=== PATIENT | female | born 1930 | race Caucasian/White ===

== ENCOUNTER 2017-03-10 01:11 | Emergency (ER) | payer MEDICARE, OTHER ==
[~2017-03-10] VITALS: Ht 144.8 cm; Wt 90.7 kg
[2017-03-10] MEDS ORDERED: GELATIN SPONGE,ABSORBABLE 1 SPONGE SPONGE TP ONE ×2 (01:14→06:00)
--- NOTE | 2017-03-10 01:15 | NUR ---
SHAVONNE, EMT PLACED SUTURE SET UP AND LIDOCAINE AT THE BEDSIDE FOR DR. FELIX
--- NOTE | 2017-03-10 01:20 | NUR ---
PT BIB RA WITH A C/O LLE BLEEDING HEMATOMA S/P HITTING IT WHILE MOVING IN HER MOTORIZED WC. PT IS AA&O X4. PT IS ABSENTEE-SHAWNEE. DR. FELIX IS AT THE BEDSIDE. PT WAS ABLE TO MOVE FROM THE WHEELCHAIR TO THE GURNEY WITH ASSISTANCE. PT WAS PLACED ON THE MONITOR AND CONTINUOUS PULSE OX.
[2017-03-10 02:01] LABS: BASOPHILS % (AUTO) 0.4 % (0.0-2.0); EOSINOPHILS # (AUTO) 0.2 /CMM (0.0-0.7); EOSINOPHILS % (AUTO) 2.7 % (0.0-6.0); HEMATOCRIT 38 % (33-45); HEMOGLOBIN 12.4 g/dL (11.5-14.8); LYMPHOCYTES # (AUTO) 1.1 /CMM (0.8-4.8); LYMPHOCYTES % (AUTO) 14.8 % (20.0-44.0); MEAN CORPUSCULAR HEMOGLOBIN 31 PG (26.0-33.0); MEAN CORPUSCULAR HGB CONC 33 g/dl (31.0-36.0); MEAN CORPUSCULAR VOLUME 95 fL (82-100); MONOCYTES # (AUTO) 0.6 /CMM (0.1-1.30); MONOCYTES % (AUTO) 7.6 % (2.0-12.0); NEUTROPHILS # (AUTO) 5.6 /CMM (1.8-8.9); NEUTROPHILS % (AUTO) 74.5 % (43.0-81.0); PLATELET COUNT (AUTO) 158 /CMM (150-450); RDW COEFFICIENT OF VARIATION 14.8 (11.5-15.0); RED BLOOD CELL COUNT(AUTO) 3.97 MIL/uL (4.0-5.2); WHITE BLOOD COUNT (AUTO) 7.5 K/uL (4.3-11.0)
[2017-03-10 02:11] LABS: CALCIUM, SERUM 6.9 mg/dL (8.5-10.1); POTASSIUM 4.1 mmol/L (3.5-5.1)
[2017-03-10 02:27] LABS: INR 1.22 (0.87-1.13); PROTHROMBIN TIME 13.2 SECS (9.5-12.7)
--- NOTE | 2017-03-10 02:35 | NUR ---
PT APPEARS TO BE RESTING COMFORTABLY WITH NO S/S OF PAIN OR DISTRESS. PT'S VSS.
--- NOTE | 2017-03-10 03:16 | NUR ---
PT REC'D A WARM BLANKET AND OVERHEAD LIGHTS TURNED OFF TO ALLOW PT TO REST.
[2017-03-10 04:05] LABS: HEMOGLOBIN 11.6 g/dL (11.5-14.8)
--- NOTE | 2017-03-10 04:07 | NUR ---
PT APPEARS TO BE SLEEPING/RESTING COMFORTABLY WITH NO S/S OF PAIN OR DISTRESS.
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
[2017-03-10] MEDS ORDERED: LIDOCAINE 1% INJ 50 ML MDV IJ ONE (06:00)
[2017-03-10 08:08] VITALS: BP 106/58
--- NOTE | 2017-03-10 08:10 | NUR ---
Patient discharged to home in stable condition. Written and verbal after care instructions given. Patient verbalizes understanding of instruction.
== END 2017-03-10 08:16 | disposition home or self-care (01) ==
LOC: ER 01:18
DX: S81.812A Laceration without foreign body, left lower leg, initial encounter (principal); X58.XXXA Exposure to other specified factors, initial encounter; Y92.89 Other specified places as the place of occurrence of the external cause; Y93.89 Activity, other specified; Y99.8 Other external cause status
CPT/HCPCS: 36415; 80048-TC; 85025-TC; 85027-TC; 85610-TC; A4606; A6402; J3490; Z7610

== ENCOUNTER 2018-11-26 18:16 | Inpatient (IN) | payer MEDICARE, OTHER ==
[~2018-11-26] VITALS: Ht 167.6 cm; Wt 76.3 kg
[2018-11-26 18:53] LABS: BASOPHILS # (AUTO) 0.1 /CMM (0.0-0.2); BASOPHILS % (AUTO) 1.2 % (0.0-2.0); EOSINOPHILS % (AUTO) 2.4 % (0.0-6.0); HEMATOCRIT 41 % (33-45); HEMOGLOBIN 13.7 g/dL (11.5-14.8); LYMPHOCYTES # (AUTO) 1.4 /CMM (0.8-4.8); LYMPHOCYTES % (AUTO) 17.3 % (20.0-44.0); MEAN CORPUSCULAR HGB CONC 33 g/dl (31.0-36.0); MEAN CORPUSCULAR VOLUME 96 fL (82-100); MONOCYTES # (AUTO) 0.9 /CMM (0.1-1.30); MONOCYTES % (AUTO) 11.5 % (2.0-12.0); NEUTROPHILS # (AUTO) 5.4 /CMM (1.8-8.9); NEUTROPHILS % (AUTO) 67.6 % (43.0-81.0); PLATELET COUNT (AUTO) 181 /CMM (150-450); RED BLOOD CELL COUNT(AUTO) 4.29 MIL/uL (4.0-5.2)
[2018-11-26] MEDS ORDERED: IV NS 0.9% 500 ML BAG IV ONE (19:00)
--- NOTE | 2018-11-26 19:00 | NUR ---
patient presented to the ER c/o failure to thrive. Confused at times. on room air, breathing evenly and unlabored. on monitor, kept comfortable. will continue to monitor accordingly.
[2018-11-26 19:03] LABS: CALCIUM, SERUM 8.7 mg/dL (8.5-10.1); CARBON DIOXIDE 39 mmol/L (21-32); CHLORIDE 101 mmol/L (98-107); CREATININE 0.8 mg/dL (0.6-1.3); GLUCOSE 90 mg/dL (74-106); POTASSIUM 3.9 mmol/L (3.5-5.1); SODIUM SERUM 142 mmol/L (136-145); UREA NITROGEN, BLOOD 31 mg/dL (7-18)
[2018-11-26 19:10] LABS: ALANINE AMINOTRANSFERASE 13 U/L (12-78); ALBUMIN 3.1 g/dL (3.4-5.0); ALKALINE PHOSPHATASE 70 U/L (46-116); ASPARTATE AMINOTRANSFERASE 42 U/L (15-37); BILIRUBIN,DIRECT 0.2 mg/dL (0.0-0.2); BILIRUBIN,TOTAL 0.9 mg/dL (0.2-1.0); TOTAL PROTEIN, SERUM 8.2 g/dL (6.4-8.2)
--- NOTE | 2018-11-26 19:17 | NUR ---
urine collected and sent to lab.
--- NOTE | 2018-11-26 19:18 | NUR ---
endorsed to Gia RECINOS for joseph.
--- NOTE | 2018-11-26 19:21 | NUR ---
URINE COLLECTED AND SENT TO LAB
[2018-11-26 19:31] LABS: BILIRUBIN,URINE Negative (NEGATIVE); BLOOD, URINE Negative Ery/uL (NEGATIVE); COLOR,URINE Dark (YELLOW); KETONES,URINE Negative (NEGATIVE); LEUKOCYTE ESTERASE ,URINE Negative (NEGATIVE); NITRITE, URINE Negative (NEGATIVE); PROTEIN,URINE Negative (NEGATIVE); UGLUCOSE Negative (NEGATIVE); UROBILINOGEN,URINE 0.2 EU/dL (0.2)
[2018-11-26 19:32] LABS: APPEARANCE,URINE HAZY (CLEAR)
[2018-11-26 19:43] LABS: BACTERIA,URINE Few /HPF (None Seen); RBC,URINE 0-2 /HPF (0-2); SQUAMOUS EPITHELIAL CELL,UR Few /HPF (None Seen); WBC,URINE 0-2 /HPF (0-3)
--- NOTE | 2018-11-26 20:01 | NUR ---
MEDSURGE, 326-2, LILIANA, DEHYDRATION
[2018-11-26] MEDS ORDERED: ONDANSETRON HCL/PF 4 MG/2 ML VIAL IVP PRN (20:30)
[2018-11-26] MEDS ORDERED: HYDROCODONE/APAP 5/325MG 1 EACH TABLET PO PRN (20:30)
[2018-11-26] MEDS ORDERED: MAGNESIUM HYDROXIDE 30 ML UDC PO PRN (20:30)
[2018-11-26] MEDS ORDERED: Z GUARD REMEDY 2 OZ OINT TP PRN (20:30)
[2018-11-26] MEDS ORDERED: ZOLPIDEM TARTRATE 5 MG TABLET PO PRN (20:30)
[2018-11-26] MEDS ORDERED: MAG HYDROX/AL HYDROX/SIMETH 30 ML UDC PO PRN (20:30)
[2018-11-26] MEDS ORDERED: ACETAMINOPHEN 325 MG TABLET PO PRN (20:30)
--- NOTE | 2018-11-26 20:32 | NUR ---
REPORT GIVEN TO FARHAT RECINOS
[2018-11-26 20:48] VITALS: BP 147/49
[2018-11-26] MEDS ORDERED: HYDROMORPHONE INJ 0.5 MG/0.5 ML SYRINGE IV PRN (21:00)
--- NOTE | 2018-11-26 21:00 | NUR ---
MS CREDIT RATING CHECKER NOTES PATIENT WAS BROUGHT TO THE UNIT ON A GURNEY,PATIENT IS ALERT ORIENTED X3, ON ROOM AIR, IN NO APPARENT DISTRESS OR DISCOMFORT AT THIS TIME, RESPIRATIONS EVEN AND UNLABORED. PATIENT IS STABLE, VITAL SIGNS STABLE. PATIENT WAS MADE COMFORTABLE IN BED. INITIAL ASSESSMENT COMPLETED, SKIN ASSESSMENT PERFORMED, PHOTOS TAKEN PLACED IN CHART. BELONGING CHECKED AND DOCUMENTED. PATIENT MADE COMFORTABLE IN BED. ID BAND APPLIED, ORIENTED TO ROOM AND HOW TO CALL FOR ASSISTANCE. SAFETY MEASURES APPLIED, BED IN LOW LOCKED POSITION, SIDE RAILS UP X2, CALL LIGHT WITHIN EASY REACH. WILL CONTINUE TO MONITOR AND CARRY OUT ADMISSION ORDERS.
[2018-11-26] MEDS: ENOXAPARIN SODIUM 40 MG/0.4 ML DISP.SYRIN SQ SCH (22:03)
[2018-11-27] MEDS: IV NS 0.9% 1,000 ML IV PRN ×2 (00:58→15:25)
[2018-11-27 06:13] LABS: BASOPHILS % (AUTO) 0.7 % (0.0-2.0); EOSINOPHILS % (AUTO) 3.2 % (0.0-6.0); HEMATOCRIT 38 % (33-45); HEMOGLOBIN 12.8 g/dL (11.5-14.8); LYMPHOCYTES # (AUTO) 1.4 /CMM (0.8-4.8); LYMPHOCYTES % (AUTO) 22.3 % (20.0-44.0); MEAN CORPUSCULAR HGB CONC 33 g/dl (31.0-36.0); MEAN CORPUSCULAR VOLUME 96 fL (82-100); MONOCYTES # (AUTO) 0.7 /CMM (0.1-1.30); MONOCYTES % (AUTO) 11.8 % (2.0-12.0); NEUTROPHILS # (AUTO) 3.9 /CMM (1.8-8.9); PLATELET COUNT (AUTO) 141 /CMM (150-450); RED BLOOD CELL COUNT(AUTO) 4.02 MIL/uL (4.0-5.2); WHITE BLOOD COUNT (AUTO) 6.3 K/uL (4.3-11.0)
[2018-11-27 06:44] LABS: ALANINE AMINOTRANSFERASE 12 U/L (12-78); ALBUMIN 2.5 g/dL (3.4-5.0); ALKALINE PHOSPHATASE 61 U/L (46-116); ASPARTATE AMINOTRANSFERASE 23 U/L (15-37); BILIRUBIN,TOTAL 0.6 mg/dL (0.2-1.0); CARBON DIOXIDE 37 mmol/L (21-32); CHLORIDE 103 mmol/L (98-107); CREATININE 0.7 mg/dL (0.6-1.3); GLUCOSE 85 mg/dL (74-106); MAGNESIUM 1.9 mg/dL (1.8-2.4); PHOSPHORUS 3.2 mg/dL (2.5-4.9); POTASSIUM 3.5 mmol/L (3.5-5.1); SODIUM SERUM 143 mmol/L (136-145); TOTAL PROTEIN, SERUM 6.7 g/dL (6.4-8.2); UREA NITROGEN, BLOOD 24 mg/dL (7-18)
[2018-11-27 06:48] LABS: CHOLESTEROL 114 mg/dL (<200); HDL CHOLESTEROL 30 mg/dL (40-60); LDL 79 mg/dL (0-99); TRIGLYCERIDES 77 mg/dL (30-150)
--- NOTE | 2018-11-27 07:30 | NUR ---
received pt. this am alert and oriented x3. confused at times.
[2018-11-27 08:00] VITALS: BP 124/56
--- NOTE | 2018-11-27 08:23 | NUR ---
RN NOTES ALL NEEDS ATTENDED AND MET, ENDORSE FOR CONTINUITY OF CARE.
[2018-11-27] MEDS: PANTOPRAZOLE 40 MG VIAL IV SCH (09:16)
[2018-11-27] MEDS ORDERED: POTA10CA43 PO (11:20)
[2018-11-27] MEDS ORDERED: DABI150C PO (11:20)
[2018-11-27] MEDS ORDERED: BUME1TAB4 PO (11:26)
[2018-11-27] MEDS ORDERED: POTA20PA34 PO (11:26)
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
[2018-11-27 16:00] VITALS: BP 140/80
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
--- NOTE | 2018-11-27 17:50 | NUR ---
pox at this time 88-89%.o2 on at 3l nc.pt states she uses o2 every night at home.
--- NOTE | 2018-11-27 18:00 | NUR ---
informed by charge coordinator jina that pt. is to have a psych eval. to check for pt's competency level.
--- NOTE | 2018-11-27 18:30 | NUR ---
denies discomfort and no changes.
--- NOTE | 2018-11-27 19:30 | NUR ---
RN MS OPENING NOTES RECEIVED PATIENT IN BED AWAKE, ALERT AND ORIENTED X3, VERBALLY RESPONSIVE, ABLE TO MAKE NEEDS KNOWN. BREATHING EVEN AND UNLABORED. NO SOB NOTED. ON 3LPM OXYGEN VIA NC. NO COMPLAINTS OF PAIN OR DISCOMFORT. NO FACIAL GRIMACING. IV ON RIGHT UPPER ARM INFILTRATED. IV REMOVED AND ARM ELEVATED. WILL INSERT A NEW IV. SKIN DRY AND WARM TO TOUCH. AFEBRILE. ALL OTHER NEEDS ATTENDED TO. SAFETY MEASURES IN PLACE. CALL LIGHT WITHIN REACH. WILL CONTINUE TO MONITOR.
--- NOTE | 2018-11-27 20:00 | NUR ---
RN MS NOTES NEW IV STARTED FOR LEFT WRIST G#22. GOOD BLOOD RETURN. INTACT AND PATENT. WILL CONTINUE TO MONITOR.
[2018-11-27 20:11] VITALS: BP 118/64
[2018-11-27] MEDS: ENOXAPARIN SODIUM 40 MG/0.4 ML DISP.SYRIN SQ SCH ×2 (21:00→21:26)
--- NOTE | 2018-11-27 21:33 | NUR ---
JORJE MS NOTES PATIENT REFUSED LOVENOX TONIGHT. PATIENT STATED THAT SHE DOESN'T NEED IT AND THAT SHE "WAS NOT AWARE" THAT SHE RECEIVED THE MEDICATION LAST NIGHT. EXPLAINED THE PURPOSE OF THE MEDICATION WELL THE RISKS OF NOT TAKING. PATIENT STILL REFUSED. MEDICATION WAS TAKEN OUT OF THE PACKAGING, BUT WASTED INSTEAD. Addendum: 11/27/18 at 2136 by BABITA JANE RN WILL CONTINUE TO MONITOR.
[2018-11-28] MEDS: IV NS 0.9% 1,000 ML IV PRN (04:44)
--- NOTE | 2018-11-28 07:11 | NUR ---
RN MS CLOSING NOTES PATIENT RESTING IN BED. EASILY AROUSABLE. BREATHING EVEN AND UNLABORED. NO SOB NOTED. ON 3LPM OXYGEN VIA NC. NO COMPLAINTS OF PAIN OR DISCOMFORT. NO FACIAL GRIMACING. IV ON LEFT WRIST G#22 INTACT AND PATENT. SKIN DRY AND WARM TO TOUCH. AFEBRILE. ALL OTHER NEEDS ATTENDED TO. SAFETY MEASURES IN PLACE. CALL LIGHT WITHIN REACH. WILL ENDORSE TO ONCOMING NURSE FOR ARIAN.
[2018-11-28 08:00] VITALS: BP 135/55
[2018-11-28] MEDS: PANTOPRAZOLE 40 MG VIAL IV SCH (09:04)
--- NOTE | 2018-11-28 11:30 | NUR ---
IV INADVERTENTLY PULLED OUT.RESTARTED LT. HAND WITH #22 ANGIO.
--- NOTE | 2018-11-28 15:12 | NUR ---
WOUND CARE CONSULT: LIMITED ASSESSMENT TODAY DUE TO PT REFUSAL EXCEPT FOR LOWER LEGS. PT NOTED TO HAVE REDNESS WITH DRY SCAB TO ANTERIOR LOWER RT LEG WITH RAISED AREA TO RT LATERAL LOWER LEG. DEFER TO MD FOR RT LATERAL LOWER LEG REDNESS/RAISED AREA. REVIEWED ADMISSION PHOTOS WHICH SHOW VERY RED RASH TO BREASTFOLDS AND ABDOMINAL/GROIN FOLDS, PRESENT ON ADMISSION. RECOMMENDATIONS MADE FOR SKIN CARE AND PROTECTION. DISCUSSED WITH NURSING STAFF. RECOMMEND LOW AIRLOSS BED (ISOFLEX). WILL SEE PRN. MD IN AGREEMENT WITH PLAN OF CARE.
[2018-11-28 16:00] VITALS: BP 125/77
[2018-11-28] MEDS: MUPIROCIN OINT 2% 22 GM TUBE SCH ×2 (17:54→20:52)
[2018-11-28] MEDS: CLOTRIMAZOLE 1% 15 GM TUBE TP SCH (17:54)
--- NOTE | 2018-11-28 17:57 | NUR ---
MARIA. LOWER EXT. DOPPLER DONE.ISABELLE. WELL. INFORMED BY [facility] MRSA NARES. BACTROBAN ORDERED.IN CONTACT ISOLATION.
--- NOTE | 2018-11-28 19:30 | NUR ---
RECEIVED PATIENT IN BED WAKE. AO X 3, ABLE TO MAKE NEEDS KNOWN. NO ACUTE DISTRESS NOTED. DENIES ANY PAIN AT THIS TIME. IV SITE PATENT, INTACT; IVF INFUSING ORDERED. CONTACT ISOLATION MAINTAINED FOR MRSA NARES. SAFETY REMINDERS GIVEN. ON LOW BED WITH BILATERAL UPPER SIDE RAILS UP. CALL TERRY WITHIN EASY REACH. WILL CONTINUE TO MONITOR.
[2018-11-28 20:00] VITALS: BP_SYST 118; BP_SYST 126; BP_DIAS 43; BP_DIAS 51
[2018-11-28] MEDS: ENOXAPARIN SODIUM 40 MG/0.4 ML DISP.SYRIN SQ SCH (20:51)
[2018-11-29] MEDS: IV NS 0.9% 1,000 ML IV PRN (05:25)
--- NOTE | 2018-11-29 06:30 | NUR ---
PATIENT ASLEEP, EASILY AROUSABLE. RESPIRATIONS EVEN. NO SIGNS OF PAIN NOTED. DUE MEDS GIVEN WITH NO ASE NOTED. IVF INFUSING ORDERED. NEEDS ATTENDED. KEPT CLEAN, DRY, AND COMFORTABLE. SAFETY PRECAUTIONS AND COMFORT MEASURES IN PLACE. WILL GIVE REPORT TO DAY SHIFT FOR CONTINUITY OF CARE.
[2018-11-29 07:21] LABS: BASOPHILS % (AUTO) 0.8 % (0.0-2.0); EOSINOPHILS % (AUTO) 2.6 % (0.0-6.0); HEMATOCRIT 37 % (33-45); HEMOGLOBIN 11.8 g/dL (11.5-14.8); LYMPHOCYTES % (AUTO) 20.2 % (20.0-44.0); MEAN CORPUSCULAR HGB CONC 32 g/dl (31.0-36.0); MEAN CORPUSCULAR VOLUME 98 fL (82-100); MONOCYTES # (AUTO) 0.5 /CMM (0.1-1.30); NEUTROPHILS # (AUTO) 3.2 /CMM (1.8-8.9); NEUTROPHILS % (AUTO) 65.4 % (43.0-81.0); PLATELET COUNT (AUTO) 134 /CMM (150-450); RED BLOOD CELL COUNT(AUTO) 3.75 MIL/uL (4.0-5.2); WHITE BLOOD COUNT (AUTO) 4.8 K/uL (4.3-11.0)
--- NOTE | 2018-11-29 07:30 | NUR ---
MS/RN OPENING NOTE THE PATIENT ALERT AND ORIENTED X3. IN ROOM AIR AND DENIES SOB. RESPIRATION REGULAR AND UNLABORED. DENIES PAIN. THE PATIENT IN NO APPARENT DISTRESS. LEFT HAND G 22 PATENT AND NORMAL SALINE INFUSING AT 75ML/HR. NO S/S INFILTRATION NOTED. BED LOW AND LOCKED. SIDE RAILS UP X3. CALL LIGHT WITHIN REACH. WILL CONTINUE TO MONITOR.
[2018-11-29 07:47] LABS: CALCIUM, SERUM 7.7 mg/dL (8.5-10.1); CARBON DIOXIDE 34 mmol/L (21-32); CHLORIDE 110 mmol/L (98-107); CREATININE 0.7 mg/dL (0.6-1.3); GLUCOSE 78 mg/dL (74-106); MAGNESIUM 1.8 mg/dL (1.8-2.4); PHOSPHORUS 3.7 mg/dL (2.5-4.9); POTASSIUM 3.9 mmol/L (3.5-5.1); SODIUM SERUM 148 mmol/L (136-145); UREA NITROGEN, BLOOD 18 mg/dL (7-18)
[2018-11-29 08:00] VITALS: BP 117/72
[2018-11-29] MEDS: PANTOPRAZOLE 40 MG VIAL IV SCH (08:21)
[2018-11-29] MEDS: MUPIROCIN OINT 2% 22 GM TUBE SCH ×2 (08:33→21:17)
[2018-11-29] MEDS: CLOTRIMAZOLE 1% 15 GM TUBE TP SCH ×2 (08:33→16:13)
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
[2018-11-29 16:04] VITALS: BP 129/76
--- NOTE | 2018-11-29 18:30 | NUR ---
MS/RN NOTE THE PATIENT ALERT AND ORIENTED X3. IN ROOM AIR AND DENIES SOB. RESPIRATION REGULAR AND UNLABORED. DENIES PAIN. THE PATIENT IN NO APPARENT DISTRESS. LEFT HAND G 22 PATENT AND SALINE LOCKED. GOOD AND GENTLE SKIN CARE RENDERED. KEPT CLEAN, DRY AND COMFORTABLE. ALL NEEDS ATTENDED AND ANTICIPATED. BED LOW AND LOCKED. SIDE RAILS UP X3. CALL LIGHT WITHIN REACH. WILL ENDORSE TO SENIOR CONTROL SYSTEMS ENGINEER.
--- NOTE | 2018-11-29 19:30 | NUR ---
RECEIVED PATIENT IN BED WAKE. AO X 3, ABLE TO MAKE NEEDS KNOWN. NO ACUTE DISTRESS NOTED. DENIES ANY PAIN AT THIS TIME. IV SITE PATENT, INTACT; FLUSHED. CONTACT ISOLATION MAINTAINED FOR MRSA NARES. SAFETY REMINDERS GIVEN. ON LOW BED WITH BILATERAL UPPER SIDE RAILS UP. CALL TERRY WITHIN EASY REACH. WILL CONTINUE TO MONITOR.
[2018-11-29 20:00] VITALS: BP 112/47
[2018-11-29 20:51] VITALS: BP 112/47
[2018-11-29] MEDS: ENOXAPARIN SODIUM 40 MG/0.4 ML DISP.SYRIN SQ SCH (21:19)
--- NOTE | 2018-11-30 06:00 | NUR ---
PATIENT ASLEEP, EASILY AROUSABLE. RESPIRATIONS EVEN. NO SIGNS OF PAIN NOTED. DUE MEDS GIVEN WITH NO ASE NOTED. NEEDS ATTENDED. KEPT CLEAN, DRY, AND COMFORTABLE. SAFETY PRECAUTIONS AND COMFORT MEASURES IN PLACE. WILL GIVE REPORT TO DAY SHIFT FOR CONTINUITY OF CARE.
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
[2018-11-30 08:00] VITALS: BP 117/41
[2018-11-30] MEDS: PANTOPRAZOLE 40 MG VIAL IV SCH (09:16)
[2018-11-30] MEDS ORDERED: CLOT15CR35 TP (10:06)
[2018-11-30] MEDS ORDERED: MUPI22OI7 (10:14)
[2018-11-30] MEDS: CLOTRIMAZOLE 1% 15 GM TUBE TP SCH (10:18)
[2018-11-30] MEDS: MUPIROCIN OINT 2% 22 GM TUBE SCH (10:18)
--- NOTE | 2018-11-30 10:20 | NUR ---
m/s photographer's model: md visit seen and examined by dr. rodriguez with order to d'c to snf. order acknowledged. md spoke to farhat (dpoa) and updated plan of care and made of of d'c today. also i spoke to her over the phone and verbalized understanding.
--- NOTE | 2018-11-30 12:30 | NUR ---
m/s administrative support assoc: notes report given to arias (rn) from [facility] for continuity of care.
--- NOTE | 2018-11-30 14:30 | NUR ---
m/s ordnance engineer: notes discharge instructions given and belongings/valuables returned to pt and verbalized understanding. will continue to monitor. awaiting for ambulance.
--- NOTE | 2018-11-30 15:00 | NUR ---
m/s computer systems manager: notes still awaiting for ambulance to come to pick her up.
--- NOTE | 2018-11-30 16:00 | NUR ---
m/s 911 telecommunicator: notes ambulance crew here and report given. h/l removed with tip intact.
--- NOTE | 2018-11-30 16:10 | NUR ---
m/s implementation specialist: discharged discharged to snf in stable condition with all her valuables via ambulance.
== END 2018-11-30 16:10 | DRG 641 ==
LOC: ER 18:18 → MED 20:07
PROVIDERS: ADMIT Nurse Practitioner Acute Care; ATTEND Internal Medicine
DX: E86.0 Dehydration (principal); E44.1 Mild protein-calorie malnutrition; R62.7 Adult failure to thrive; L89.309 Pressure ulcer of unspecified buttock, unspecified stage; Z68.27 Body mass index [BMI] 27.0-27.9, adult; F39 Unspecified mood [affective] disorder; F09 Unspecified mental disorder due to known physiological condition; L30.4 Erythema intertrigo; M17.12 Unilateral primary osteoarthritis, left knee; M62.50 Muscle wasting and atrophy, not elsewhere classified, unspecified site; L98.8 Other specified disorders of the skin and subcutaneous tissue; I87.2 Venous insufficiency (chronic) (peripheral); R53.1 Weakness; R22.41 Localized swelling, mass and lump, right lower limb; G31.84 Mild cognitive impairment of uncertain or unknown etiology; I73.9 Peripheral vascular disease, unspecified; Z86.72 Personal history of thrombophlebitis
CPT/HCPCS: 36415; 71045-TC; 80048-TC; 80053-TC; 80061-TC; 80076-TC; 81000-TC; 83735-TC; 84100-TC; 85025-TC; 87081-TC; 93970-TC; A6403; C9113; G0378; J1650; J7030; J7040

== ENCOUNTER 2018-12-25 17:14 | Inpatient (IN) | payer MEDICARE ==
[~2018-12-25] VITALS: Ht 167.6 cm; Wt 80.8 kg
[~2018-12-25 17:14] MED LIST: CLOT15CR35 TP; DABI150C PO; MUPI22OI7
--- NOTE | 2018-12-25 17:29 | NUR ---
[id number], FROM HOME C/O BILATERAL LOWER EXTREMITIES PAIN AND EDEMA, TO ER BED 17, HOOKED TO MONITOR, AWAITING MD DURAN
--- NOTE | 2018-12-25 18:10 | NUR ---
DR HANCOCK AT BEDSIDE
[2018-12-25 18:20] LABS: BASOPHILS % (AUTO) 0.3 % (0.0-2.0); EOSINOPHILS % (AUTO) 0.6 % (0.0-6.0); HEMATOCRIT 43 % (33-45); HEMOGLOBIN 14.1 g/dL (11.5-14.8); LYMPHOCYTES # (AUTO) 1.3 /CMM (0.8-4.8); LYMPHOCYTES % (AUTO) 14.4 % (20.0-44.0); MEAN CORPUSCULAR HGB CONC 32 g/dl (31.0-36.0); MEAN CORPUSCULAR VOLUME 96 fL (82-100); MONOCYTES # (AUTO) 0.7 /CMM (0.1-1.30); MONOCYTES % (AUTO) 7.2 % (2.0-12.0); NEUTROPHILS # (AUTO) 7.2 /CMM (1.8-8.9); NEUTROPHILS % (AUTO) 77.5 % (43.0-81.0); PLATELET COUNT (AUTO) 125 /CMM (150-450); RED BLOOD CELL COUNT(AUTO) 4.53 MIL/uL (4.0-5.2); WHITE BLOOD COUNT (AUTO) 9.3 K/uL (4.3-11.0)
[2018-12-25 18:29] LABS: CALCIUM, SERUM 8.4 mg/dL (8.5-10.1); CARBON DIOXIDE 33 mmol/L (21-32); CHLORIDE 101 mmol/L (98-107); CREATININE 0.8 mg/dL (0.6-1.3); GLUCOSE 85 mg/dL (74-106); SODIUM SERUM 139 mmol/L (136-145); UREA NITROGEN, BLOOD 19 mg/dL (7-18)
[2018-12-25] MEDS ORDERED: VANCOMYCIN 1 GM in IV D5W 250 ML IV ONE (18:30)
[2018-12-25] MEDS ORDERED: METOCLOPRAMIDE HCL 10 MG/2 ML VIAL IV ONE (18:30)
[2018-12-25] MEDS ORDERED: PIPERACILLIN /TAZOBACTAM 3.375 G in IV D5W 50 ML IV ONE (18:30)
[2018-12-25 18:31] LABS: MAGNESIUM 1.6 mg/dL (1.8-2.4)
[2018-12-25 18:44] LABS: CHOLESTEROL 141 mg/dL (<200); HDL CHOLESTEROL 40 mg/dL (40-60); LDL 91 mg/dL (0-99); TRIGLYCERIDES 88 mg/dL (30-150)
[2018-12-25] MEDS ORDERED: Magnesium 1GM/D5W 100ML PREMIX 100 ML IV ONE ×2 (19:02→22:38)
--- NOTE | 2018-12-25 19:10 | NUR ---
US TECH AT BEDSIDE
[2018-12-25 19:11] LABS: APPEARANCE,URINE Cloudy (CLEAR); BILIRUBIN,URINE Negative (NEGATIVE); BLOOD, URINE Moderate Ery/uL (NEGATIVE); COLOR,URINE Yellow (YELLOW); KETONES,URINE Negative (NEGATIVE); LEUKOCYTE ESTERASE ,URINE Small (NEGATIVE); NITRITE, URINE Positive (NEGATIVE); PROTEIN,URINE Trace mg/dl (NEGATIVE); UGLUCOSE Negative (NEGATIVE)
[2018-12-25] MEDS ORDERED: VANCOMYCIN 1 GM VIAL ONE (19:27)
--- NOTE | 2018-12-25 19:40 | NUR ---
DIAPER CHANGED. PT NOTED W L AND R GROIN MASD. KEPT PT CLEAN, SAFE AND COMFORTABLE. WILL CONTINUE TO MONITOR
[2018-12-25 19:43] LABS: BACTERIA,URINE Many /HPF (None Seen); SQUAMOUS EPITHELIAL CELL,UR Few /HPF (None Seen)
--- NOTE | 2018-12-25 20:06 | NUR ---
PROVIDED WITH EGG SANDWICH AND ORANGE JUICE
[2018-12-25] MEDS: Magnesium 1GM/D5W 100ML PREMIX 100 ML IV SCH ×2 (20:15→23:33)
--- NOTE | 2018-12-25 21:10 | NUR ---
CALLED [facility] SPOKE TO THE NURSING PUBLIC DEFENDER HALI. HE STATES THAT THEY DONT HAVE ANY BEDS AVAILABLE AT THE MOMENT.
--- NOTE | 2018-12-25 21:11 | NUR ---
REPORT GIVEN TO KEO RECINOS OF TELE UNIT FOR ARIAN
[2018-12-25] MEDS ORDERED: IV NS 0.9% 1,000 ML IV PRN (21:24)
[2018-12-25] MEDS ORDERED: Z GUARD REMEDY 2 OZ OINT TP PRN (21:30)
[2018-12-25] MEDS ORDERED: ACETAMINOPHEN 325 MG TABLET PO PRN (21:30)
[2018-12-25] MEDS ORDERED: ONDANSETRON HCL/PF 4 MG/2 ML VIAL IVP PRN (21:30)
[2018-12-25] MEDS ORDERED: MAG HYDROX/AL HYDROX/SIMETH 30 ML UDC PO PRN (21:30)
[2018-12-25] MEDS ORDERED: MAGNESIUM HYDROXIDE 30 ML UDC PO PRN (21:30)
[2018-12-25] MEDS ORDERED: HYDROCODONE/APAP 5/325MG 1 EACH TABLET PO PRN (21:30)
--- NOTE | 2018-12-25 21:45 | NUR ---
MS BASKETBALL COMMENTATOR INITIAL NOTES ADMIT PT FROM ER VIA GURADELA ACCOMPANIED BY ER NURSE AND TECH. DX OF LOWER LEGS CELLULITIS. PT IS ALERT ORIENTED X3. HEPLOCK ON HER LEFT AC PATENT AND INTACT . AWARE WHERE SHE AT AND HOW TO USED THE CALL LIGHT SYSTEM. PT DENIES ANY PAIN OR ANY DISCOMFORT AT THIS TIME. NO SIGNS OF ANY ACUTE DISTRESS NOTED. NOTED SKIN WARM AND DRY TO TOUCH , SKIN RASH AND REDNESS. EDEMA BOTH LOWER LEGS , OFFLOAD WITH PILLOWS. ASSESSMENT DONE AND RECORDED AND ENCOURAGE PT TO USED THE CALL LIGHT SYSTEM IF SHE NEEDS NURSE OR NEEDS SOME HELP. KEPT HER WARM AND COMFORTABLE AT ALL TIMES. ON SEMI FOWLERS POSITION WITH SIDE RAILSX2 UP AND BED IN LOW AND LOCK IN POSITION PLACE CALL LIGHT AT REACH. BED ALARM SET FOR SAFETY.
[2018-12-25 22:00] VITALS: BP 100/45
--- NOTE | 2018-12-25 22:30 | NUR ---
CLARIFIED W DR HANCOCK, ORDERED 1G OF MG SULFATE TO RUN FOR AN HOUR. HOOKED 2ND BAG OF MAGNESIUM IVPB. ENDORSED TO KEO RECINOS.
--- NOTE | 2018-12-25 23:40 | NUR ---
MS BETI NOTES MAGNESIUM IVP BAG DOSE GIVEN BY ANOTHER NURSE ORDERED BY DR HANCOCK PER ER NURSE . 2 DOSE OF MG COMPLETE ORDERED.
--- NOTE | 2018-12-25 23:45 | NUR ---
RN MS NOTES 1 GM MAGNESIUM GIVEN ORDERED EXPLANATION GIVEN TO PATIENT REGARDING MG REPLACEMENT.
[2018-12-26 00:27] VITALS: BP 100/45
[2018-12-26 06:36] LABS: BASOPHILS % (AUTO) 0.3 % (0.0-2.0); EOSINOPHILS % (AUTO) 2.9 % (0.0-6.0); HEMATOCRIT 35 % (33-45); HEMOGLOBIN 11.9 g/dL (11.5-14.8); LYMPHOCYTES # (AUTO) 1.5 /CMM (0.8-4.8); LYMPHOCYTES % (AUTO) 23.1 % (20.0-44.0); MEAN CORPUSCULAR HGB CONC 34 g/dl (31.0-36.0); MEAN CORPUSCULAR VOLUME 94 fL (82-100); MONOCYTES # (AUTO) 0.5 /CMM (0.1-1.30); MONOCYTES % (AUTO) 8.4 % (2.0-12.0); NEUTROPHILS # (AUTO) 4.1 /CMM (1.8-8.9); NEUTROPHILS % (AUTO) 65.3 % (43.0-81.0); PLATELET COUNT (AUTO) 98 /CMM (150-450); RED BLOOD CELL COUNT(AUTO) 3.77 MIL/uL (4.0-5.2); WHITE BLOOD COUNT (AUTO) 6.3 K/uL (4.3-11.0)
[2018-12-26 06:52] LABS: CHOLESTEROL 101 mg/dL (<200); HDL CHOLESTEROL 29 mg/dL (40-60); LDL 67 mg/dL (0-99); THYROID STIMULATING HORMONE 1.535 uIU/mL (0.358-3.74); TRIGLYCERIDES 57 mg/dL (30-150)
[2018-12-26 07:01] LABS: CALCIUM, SERUM 7.8 mg/dL (8.5-10.1); CARBON DIOXIDE 32 mmol/L (21-32); CHLORIDE 106 mmol/L (98-107); CREATININE 0.6 mg/dL (0.6-1.3); GLUCOSE 78 mg/dL (74-106); MAGNESIUM 2.2 mg/dL (1.8-2.4); PHOSPHORUS 3.1 mg/dL (2.5-4.9); POTASSIUM 3.4 mmol/L (3.5-5.1); SODIUM SERUM 143 mmol/L (136-145); UREA NITROGEN, BLOOD 13 mg/dL (7-18)
--- NOTE | 2018-12-26 07:27 | NUR ---
ms supervisor unloading closing notes pt awake and alert watching TV and at the same time answering her puzzle. stable tiffanie the night and slept well after we rendered sponges bath and skin care.. IVF NS at 75ml/hr still infusing on her left AC patent and intact. No signs of any acute distress or any discomfort. kept her warm and comfortable at all times. place call light at reach. bed aalarm set for safety. endorse to am nurse for continuity of care.
--- NOTE | 2018-12-26 07:41 | NUR ---
MS RN NOTES PATIENT RECEIVED RESTING INSIDE ROOM. AWAKE, ALERT AND ORIENTED, VERBALLY RESPONSIVE AND RESPONDS TO VERBAL AND TACTILE STIMULI. BREATHING EVEN AND UNLABORED. NO ACUTE DISTRESS AT THIS TIME. PATIENT DENIES ANY PAIN OR DISCOMFORT. IVF INFUSING WELL. WILL CONTINUE TO MONITOR. BED LOCKED AND IN LOW POSITION. BILATERAL UPPER SIDE RAILS UP AND LOCKED. CALL LIGHT WITHIN EASY REACH
[2018-12-26 08:00] VITALS: BP 118/45
[2018-12-26] MEDS ORDERED: FEE PK DOSING 1 MIN EA MC ONE (08:10)
[2018-12-26 08:42] LABS: EOSINOPHILS % (MANUAL) 1 % (0-4); LYMPHOCYTES % (MANUAL) 23 % (16-48); MONOCYTES % (MANUAL) 9 % (0-11.0); NEUTROPHILS % (MANUAL) 67 (42-76)
[2018-12-26] MEDS: MUPIROCIN OINT 2% 22 GM TUBE SCH ×2 (09:00→20:51)
[2018-12-26] MEDS: CLOTRIMAZOLE 1% 15 GM TUBE TP SCH ×2 (09:01→17:53)
[2018-12-26] MEDS: DABIGATRAN ETEXILATE MESYLATE 150 MG CAPSULE PO SCH ×2 (09:01→17:51)
[2018-12-26] MEDS: PANTOPRAZOLE 40 MG TABLET.DR PO SCH (09:03)
[2018-12-26] MEDS: CEFTRIAXONE 1 G in IV D5W 50 ML IV SCH (10:44)
[2018-12-26] MEDS ORDERED: POTASSIUM CHLORIDE 20 MEQ TAB.PRT.SR PO SCH (12:00)
--- NOTE | 2018-12-26 12:30 | NUR ---
MS RN NOTES PATIENT SEEN AND EXAMINED BY DR. DUONG. VERIFIED INFORMED CONSENT OBTAINED BY MD FROM PATIENT REGARDING WOUND DEBRIDEMENT AND WITNESSED BY LICENSED STAFF. WOUND DEBRIDEMENT DONE ON RLE AND PATIENT TOLERATED WELL. POST DEBRIDEMENT PICTURE TAKEN AND FILED. WILL CONTINUE TO MONITOR
[2018-12-26] MEDS: VANCOMYCIN 1 GM in IV D5W 250 ML IV SCH (13:45)
[2018-12-26 15:51] VITALS: BP 117/78
--- NOTE | 2018-12-26 18:47 | NUR ---
MS RN NOTES PATIENT RESTING INSIDE ROOM. AWAKE, ALERT AND ORIENTED, VERBALLY RESPONSIVE AND RESPONDS TO VERBAL AND TACTILE STIMULI. BREATHING EVEN AND UNLABORED. DENIES ANY PAIN OR DISCOMFORT. NO CHANGES IN LOC NOTED AT THIS TIME. BLE DRESSINGS INTACT, NO DRAINAGE NOTED. KEPT SITES CLEAN AND DRY. IV INTACT AND PATENT. WILL ENDORSE TO INCOMING SHIFT FOR ARIAN. BED LOCKED AND IN LOW POSITION. BILATERAL UPPER SIDE RAILS UP AND LOCKED. CALL LIGHT WITHIN EASY REACH
--- NOTE | 2018-12-26 19:30 | NUR ---
MS RN NOTES RECEIVED ON BED A/O X2-3,BREATHING REGULAR,NOT IN ANY FORM DISTRESS.SALINE LOCK RIGHT AC INTACT AND PATENT,BILATERAL LEG DRESSING INTACT AND DRY,FOOT PART ELEVATED.PAIN TOLERABLE AT THE MOMENT.CALL LIGHT IN REACH,NEEDS ANTICIPATED.
[2018-12-26 20:00] VITALS: BP 127/51
--- NOTE | 2018-12-26 20:51 | NUR ---
MS RN NOTES BACTROBAN NON ADMINISTERED,MRSA PENDING RESULT
--- NOTE | 2018-12-27 06:42 | NUR ---
MS RN NOTES NO SIGNIFICANT CHANGE IN STATUS.DENIES PAIN AT ALL,BILATERAL LOWER EXTREMITIES ELEVATED.SLEPT WELL.IN NO ACUTE DISTRESS.WILL ENDORSE TO DAY NURSE FOR ARIAN.
--- NOTE | 2018-12-27 07:14 | NUR ---
WOUND CARE CONSULT WOUND CARE RECEIVED CONSULT FOR PRESSURE ULCERS SACRUM. WOUND CARE WILL DEFER CONSULT AND ALL TREATMENT PLANS TO PLASTIC SURGICAL TEAM WELL DPM DR DUONG WHO ARE ALL CURRENTLY FOLLOWING. PATIENT WITH DESTINY AT 15, ALL PRESSURE ULCER PREVENTION MEASURES ARE NOTED TO BE IN PLACE. WILL SEE PRN.
--- NOTE | 2018-12-27 07:30 | NUR ---
MS RN NOTES PATIENT RECEIVED RESTING INSIDE ROOM. AWAKE, ALERT AND ORIENTED, VERBALLY RESPONSIVE AND RESPONDS TO VERBAL AND TACTILE STIMULI. BREATHING EVEN AND UNLABORED. DENIES ANY PAIN OR DISCOMFORT AT THIS TIME. NO CHANGES IN LOC NOTED AT THIS TIME. PATIENT CALM AND RELAXED. BLE DRESSING INTACT, NO DRAINAGE OR BLEEDING NOTED. WILL CONTINUE TO MONITOR. BED LOCKED AND IN LOW POSITION. BILATERAL UPPER SIDE RAILS UP AND LOCKED. CALL LIGHT WITHIN EASY REACH
[2018-12-27 08:00] VITALS: BP 132/61
[2018-12-27] MEDS: PANTOPRAZOLE 40 MG TABLET.DR PO SCH (08:06)
[2018-12-27] MEDS: DABIGATRAN ETEXILATE MESYLATE 150 MG CAPSULE PO SCH ×2 (08:08→16:19)
[2018-12-27] MEDS: MUPIROCIN OINT 2% 22 GM TUBE SCH ×2 (08:09→21:21)
[2018-12-27] MEDS: CLOTRIMAZOLE 1% 15 GM TUBE TP SCH ×2 (08:09→16:19)
[2018-12-27 08:16] LABS: BASOPHILS % (AUTO) 0.5 % (0.0-2.0); EOSINOPHILS % (AUTO) 3.5 % (0.0-6.0); HEMATOCRIT 40 % (33-45); HEMOGLOBIN 13.3 g/dL (11.5-14.8); LYMPHOCYTES # (AUTO) 1.1 /CMM (0.8-4.8); LYMPHOCYTES % (AUTO) 19.7 % (20.0-44.0); MEAN CORPUSCULAR HGB CONC 33 g/dl (31.0-36.0); MEAN CORPUSCULAR VOLUME 95 fL (82-100); MONOCYTES # (AUTO) 0.4 /CMM (0.1-1.30); NEUTROPHILS # (AUTO) 3.9 /CMM (1.8-8.9); NEUTROPHILS % (AUTO) 69.3 % (43.0-81.0); PLATELET COUNT (AUTO) 126 /CMM (150-450); RED BLOOD CELL COUNT(AUTO) 4.26 MIL/uL (4.0-5.2); WHITE BLOOD COUNT (AUTO) 5.6 K/uL (4.3-11.0)
[2018-12-27 08:29] LABS: CALCIUM, SERUM 7.8 mg/dL (8.5-10.1); CARBON DIOXIDE 34 mmol/L (21-32); CHLORIDE 107 mmol/L (98-107); CREATININE 0.7 mg/dL (0.6-1.3); GLUCOSE 85 mg/dL (74-106); MAGNESIUM 1.9 mg/dL (1.8-2.4); PHOSPHORUS 3.7 mg/dL (2.5-4.9); POTASSIUM 3.7 mmol/L (3.5-5.1); SODIUM SERUM 145 mmol/L (136-145); UREA NITROGEN, BLOOD 9 mg/dL (7-18)
[2018-12-27] MEDS: VANCOMYCIN 1 GM in IV D5W 250 ML IV SCH (09:01)
[2018-12-27] MEDS: CEFTRIAXONE 1 G in IV D5W 50 ML IV SCH (11:32)
[2018-12-27 16:00] VITALS: BP 117/52
--- NOTE | 2018-12-27 18:51 | NUR ---
MS RN NOTES PATIENT RESTING INSIDE ROOM. AWAKE, ALERT AND ORIENTED, VERBALLY RESPONSIVE AND RESPONDS TO VERBAL AND TACTILE STIMULI. BREATHING EVEN AND UNLABORED. NO ACUTE DISTRESS AT THIS TIME. NO CHANGES IN LOC NOTED .DENIES ANY PAIN OR DISCOMFORT. PATIENT CALM AND RELAXED. ALL NURSING NEEDS ATTENDED AND MET. PATIENT KEPT CLEAN, DRY AND COMFORTABLE. WILL ENDORSE TO INCOMING SHIFT FOR ARIAN. BED LOCKED AND IN LOW POSITION. BILATERAL UPPER SIDE RAILS UP AND LOCKED. CALL LIGHT WITHIN EASY REACH
--- NOTE | 2018-12-27 19:30 | NUR ---
MS RN NOTES RECEIVED RESTING COMFORTABLY ON BED,BREATHING REGULAR,SALINE LOCK LEFT AC INTACT AND PATENT.BILATERAL LOWER EXTREMITIES WITH DRESSING INTACT AND DRY,ELEVATED.DENIES PAIN AT THE MOMENT,CALL LIGHT IN REACH,NEEDS ANTICIPATED.
[2018-12-27 20:00] VITALS: BP 138/61
[2018-12-27 20:32] VITALS: BP 138/61
--- NOTE | 2018-12-27 21:00 | NUR ---
MS RN NOTES ISOLATION PRECAUTION FOR MRSA NARES,STARTED ON BACTROBAN ON BOTH NARES.
[2018-12-28] MEDS: VANCOMYCIN 1 GM in IV D5W 250 ML IV SCH (01:58)
--- NOTE | 2018-12-28 02:00 | NUR ---
MS RN NOTES DUE VANCOMYCIN 1GM IVPB HUNG
--- NOTE | 2018-12-28 05:55 | NUR ---
MS RN NOTES REFUSED EARLY BLOOD DRAW THIS MORNING.JEWEL SETTER WILL TRY LATER
--- NOTE | 2018-12-28 06:21 | NUR ---
MS RN NOTES WITH EPISODE OF CONFUSION LAST NIGHT.DENIES PAIN.IV ABX TOLERATED WELL.ACCEPTED AT [facility].CALL LIGHT IN REACH,NEEDS ATTENDED.
--- NOTE | 2018-12-28 07:40 | NUR ---
MS RN NOTES PATIENT RECEIVED RESTING INSIDE ROOM. AWAKE, ALERT AND ORIENTED TO SELF, VERBALLY RESPONSIVE AND RESPONDS TO VERBAL AND TACTILE STIMULI. PER PREVIOUS SHIFT REPORT, PATIENT HAD AN EPISODE OF DISORIENTATION. PATIENT HAS NO RECOLLECTION OF WHAT HAPPENED LAST NIGHT. PATIENT REORIENTED. PATIENT CALM AND RELAXED. MAINTAINED ISOLATION PRECAUTIONS. FALL PRECAUTIONS IN PLACE. WILL CONTINUE TO MONITOR. BED LOCKED AND IN LOW POSITION. BED ALARM ON. BILATERAL UPPER SIDE RAILS UP AND LOCKED. CALL LIGHT WITHIN EASY REACH
[2018-12-28 08:00] VITALS: BP 140/54
[2018-12-28] MEDS: DABIGATRAN ETEXILATE MESYLATE 150 MG CAPSULE PO SCH (08:29)
[2018-12-28] MEDS: PANTOPRAZOLE 40 MG TABLET.DR PO SCH (08:29)
[2018-12-28] MEDS: MUPIROCIN OINT 2% 22 GM TUBE SCH (08:30)
[2018-12-28] MEDS: CLOTRIMAZOLE 1% 15 GM TUBE TP SCH (08:30)
[2018-12-28] MEDS: CEFTRIAXONE 1 G in IV D5W 50 ML IV SCH (10:56)
[2018-12-28] MEDS ORDERED: LEVO500T75 PO (11:11)
--- NOTE | 2018-12-28 15:00 | NUR ---
MS RN NOTES PATIENT WITH ORDER FOR DISCHARGE. PATIENT MADE AWARE AND VERBALIZED UNDERSTANDING. SPOKE WITH GINO (DPOA/NIECE) OVER THE PHONE AND MADE AWARE . PER GINO, SHE'S REQUESTING DR. PATEL TO CALL HER PRIOR TO DISCHARGE. DR. PATEL AWARE, CASE MANAGEMENT AWARE. WILL CONTINUE TO MONITOR.
--- NOTE | 2018-12-28 15:30 | NUR ---
MS RN NOTES PLACED CALL TO MARBINLola GOLDSTEIN ([phone]) AND SPOKE WITH HARJIT RECINOS/BART AND GAVE REPORT
[2018-12-28 16:00] VITALS: BP 148/43
[2018-12-28 16:13] LABS: CALCIUM, SERUM 7.9 mg/dL (8.5-10.1); CARBON DIOXIDE 33 mmol/L (21-32); CHLORIDE 107 mmol/L (98-107); CREATININE 0.7 mg/dL (0.6-1.3); GLUCOSE 82 mg/dL (74-106); POTASSIUM 3.7 mmol/L (3.5-5.1); SODIUM SERUM 146 mmol/L (136-145); UREA NITROGEN, BLOOD 9 mg/dL (7-18)
--- NOTE | 2018-12-28 18:21 | NUR ---
MS RN NOTES PATIENT FOR DISCHARGE TODAY. DISCHARGE INSTRUCTIONS AND EDUCATION GIVEN AND TOLERATED WELL. ALL BELONGINGS COMPLETE, NO REPORT OF MISSING BELONGINGS. PATIENT COUNTED HER MONEY AND VERBALIZED EVERYTHING IS COMPLETE. IV REMOVED WITH MINIMAL BLEEDING NOTED, PRESSURE DRESSING PLACED ON SITE. PATIENT LEFT UNIT AT 1820 VIA GURNEY IN STABLE CONDITION. BREATHING EVEN AND UNLABORED. NO CHANGES IN LOC NOTED. NO NEW SKIN BREAKDOWN NOTED. NO PAIN OR DISCOMFORT. MD AWARE OF DISCHARGE
== END 2018-12-28 18:19 | DRG 571 ==
LOC: ER 17:25 → MED 20:51
PROVIDERS: ADMIT Registered Nurse; ATTEND Internal Medicine
PROC: 0JBN0ZZ Excision of Right Lower Leg Subcutaneous Tissue and Fascia, Open Approach (ICD-10-PCS; principal; 2018-12-25)
DX: L03.115 Cellulitis of right lower limb (principal); N39.0 Urinary tract infection, site not specified; E44.1 Mild protein-calorie malnutrition; L03.116 Cellulitis of left lower limb; M17.12 Unilateral primary osteoarthritis, left knee; I48.91 Unspecified atrial fibrillation; R26.2 Difficulty in walking, not elsewhere classified; I80.9 Phlebitis and thrombophlebitis of unspecified site; E66.9 Obesity, unspecified; Z68.28 Body mass index [BMI] 28.0-28.9, adult; B96.89 Other specified bacterial agents as the cause of diseases classified elsewhere; I87.8 Other specified disorders of veins; R60.9 Edema, unspecified; L98.9 Disorder of the skin and subcutaneous tissue, unspecified; Z86.14 Personal history of Methicillin resistant Staphylococcus aureus infection; Z86.72 Personal history of thrombophlebitis; Z68.32 Body mass index [BMI] 32.0-32.9, adult; L30.4 Erythema intertrigo; I48.2 Chronic atrial fibrillation; H91.90 Unspecified hearing loss, unspecified ear
CPT/HCPCS: 36415; 71045-TC; 73590-TC; 80048-TC; 80061-TC; 80202-TC; 81000-TC; 82962-TC; 83605-TC; 83735-TC; 83880; 84100-TC; 84443-TC; 84484-TC; 85025-TC; 85730-TC; 87040-TC; 87081-TC; 87086-TC; 87186-TC; 93307-TC; 93970-TC; A6403; G0378; J0696; J2543; J3370; J3475; J7030; J7060

== ENCOUNTER 2019-06-17 10:45 | Inpatient (IN) | payer MEDICARE, OTHER ==
[~2019-06-17] VITALS: Ht 165.1 cm; Wt 70.3 kg
[~2019-06-17 10:45] MED LIST changes: +LEVO500T75 PO
[2019-06-17] MEDS ORDERED: IV NS 0.9% 500 ML BAG IV ONE (11:00)
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
--- NOTE | 2019-06-17 11:05 | NUR ---
DR. MARIEE AT BEDSIDE FOR EVAL.
--- NOTE | 2019-06-17 11:08 | NUR ---
NURSING ASSESSMENT FOR STROKE COMPLETED, NEGATIVE. PATIENT HAS NO S/SX OF STROKE OBSERVED.
[2019-06-17 11:09] LABS: BASOPHILS % (AUTO) 0.7 % (0.0-2.0); EOSINOPHILS % (AUTO) 1.9 % (0.0-6.0); HEMATOCRIT 43 % (33-45); HEMOGLOBIN 14.2 g/dL (11.5-14.8); LYMPHOCYTES # (AUTO) 1.1 /CMM (0.8-4.8); LYMPHOCYTES % (AUTO) 17.2 % (20.0-44.0); MEAN CORPUSCULAR HGB CONC 33 g/dl (31.0-36.0); MEAN CORPUSCULAR VOLUME 96 fL (82-100); MONOCYTES # (AUTO) 0.4 /CMM (0.1-1.30); MONOCYTES % (AUTO) 6.9 % (2.0-12.0); NEUTROPHILS # (AUTO) 4.7 /CMM (1.8-8.9); NEUTROPHILS % (AUTO) 73.3 % (43.0-81.0); PLATELET COUNT (AUTO) 140 /CMM (150-450); RED BLOOD CELL COUNT(AUTO) 4.49 MIL/uL (4.0-5.2); WHITE BLOOD COUNT (AUTO) 6.4 K/uL (4.3-11.0)
[2019-06-17 11:16] LABS: CALCIUM, SERUM 8.8 mg/dL (8.5-10.1); CARBON DIOXIDE 36 mmol/L (21-32); CHLORIDE 104 mmol/L (98-107); CREATININE 0.8 mg/dL (0.6-1.3); GLUCOSE 87 mg/dL (74-106); POTASSIUM 4.2 mmol/L (3.5-5.1); SODIUM SERUM 139 mmol/L (136-145); UREA NITROGEN, BLOOD 19 mg/dL (7-18)
[2019-06-17] MEDS ORDERED: POTASSIUM CHLORIDE (11:19)
[2019-06-17 11:23] LABS: ALANINE AMINOTRANSFERASE 11 U/L (12-78); ALBUMIN 3.5 g/dL (3.4-5.0); ALCOHOL, BLOOD < 3 mg/dL (0-0); ALKALINE PHOSPHATASE 70 U/L (46-116); ASPARTATE AMINOTRANSFERASE 26 U/L (15-37); BILIRUBIN,DIRECT 0.3 mg/dL (0.0-0.2); BILIRUBIN,TOTAL 0.9 mg/dL (0.2-1.0); TOTAL PROTEIN, SERUM 8.3 g/dL (6.4-8.2)
[2019-06-17 11:34] LABS: APPEARANCE,URINE HAZY (CLEAR); BILIRUBIN,URINE Negative (NEGATIVE); BLOOD, URINE Small Ery/uL (NEGATIVE); COLOR,URINE Yellow (YELLOW); KETONES,URINE Trace (NEGATIVE); LEUKOCYTE ESTERASE ,URINE Small (NEGATIVE); NITRITE, URINE Positive (NEGATIVE); PH,URINE 8.5 (5.0-8.0); PROTEIN,URINE 30 mg/dl (NEGATIVE); UGLUCOSE Negative (NEGATIVE)
[2019-06-17 11:35] LABS: BACTERIA,URINE 1+ /HPF (None Seen); SQUAMOUS EPITHELIAL CELL,UR Few /HPF (None Seen)
[2019-06-17 11:36] LABS: URINE AMORPHOUS PHOSPHATES Few /HPF (None Seen)
--- NOTE | 2019-06-17 11:39 | NUR ---
[facility] PAGED, EBEN RIB BUILDER
--- NOTE | 2019-06-17 11:40 | NUR ---
DONALD, IT PORTFOLIO MANAGER FOR PATIENT. PHONE #[phone]
[2019-06-17] MEDS ORDERED: CEFTRIAXONE 1GM BAG (ER ONLY) 50 ML IV ONE (11:45)
--- NOTE | 2019-06-17 11:59 | NUR ---
[facility] PAGED
[2019-06-17] MEDS ORDERED: CEFTRIAXONE 1GM BAG (ER ONLY) 1 GM/50 ML PIGGYBACK IV ONE (12:00)
--- NOTE | 2019-06-17 12:17 | NUR ---
DR TREADWELL AT BEDSIDE
--- NOTE | 2019-06-17 12:34 | NUR ---
REPORT GIVEN TO DEMARCO RECINOS FOR ARIAN.
[2019-06-17] MEDS ORDERED: Z GUARD REMEDY 2 OZ OINT TP PRN (13:00)
[2019-06-17] MEDS ORDERED: HYDROCODONE/APAP 5/325MG 1 EACH TABLET PO PRN (13:00)
[2019-06-17] MEDS ORDERED: MAG HYDROX/AL HYDROX/SIMETH 30 ML UDC PO PRN (13:00)
[2019-06-17] MEDS ORDERED: ACETAMINOPHEN 325 MG TABLET PO PRN (13:00)
[2019-06-17] MEDS ORDERED: MAGNESIUM HYDROXIDE 30 ML UDC PO PRN (13:00)
[2019-06-17] MEDS ORDERED: ONDANSETRON HCL/PF 4 MG/2 ML VIAL IVP PRN (13:00)
--- NOTE | 2019-06-17 13:30 | NUR ---
PATIENT TRANSFERRED TO ROOM 324-1 VIA ACLS PROTOCOL, PATIENT IN STABLE CONDITION. VITALS STABLE.
--- NOTE | 2019-06-17 13:40 | NUR ---
IRONWORKER APPRENTICEGLOBAL UPSTREAM MARKETING MANAGER NOTE PATIENT IN BED RESTING COMFORTABLY. PATIENT IS ALERT AND ORIENTED X2. PATIENT IN NO ACUTE DISTRESS. NO SOB NOTED. PATIENT BREATHING ON OXYGEN NC AT 2L SATURATING ABOVE 95% SPO2. PATIENT SAFETY PRECAUTIONS IN PLACE. PATIENT VITAL SIGNS WNL. PATIENT ON A 1:1 SITTER. PATIENT BED IS LOCKED AND IN LOWEST POSITION. CALL LIGHT WITHIN REACH. WILL CONTINUE TO MONITOR. MD NOTIFIED AND MADE AWARE. AWAITING ADMISSION ORDERS, WILL FOLLOW UP. Addendum: 06/17/19 at 1934 by DEMARCO ISSA RN [place] GLOBAL UPSTREAM MARKETING MANAGER NOTE PATIENT IN BED RESTING COMFORTABLY. PATIENT IS ALERT AND ORIENTED X2. PATIENT IN NO ACUTE DISTRESS. NO SOB NOTED. PATIENT BREATHING ON OXYGEN NC AT 2L SATURATING ABOVE 95% SPO2. PATIENT SAFETY PRECAUTIONS IN PLACE. PATIENT VITAL SIGNS WNL. SKIN ASSESSED. PATIENT ON A 1:1 SITTER. PATIENT BED IS LOCKED AND IN LOWEST POSITION. CALL LIGHT WITHIN REACH. WILL CONTINUE TO MONITOR. MD NOTIFIED AND MADE AWARE. AWAITING ADMISSION ORDERS, WILL FOLLOW UP.
[2019-06-17 13:45] VITALS: BP 116/73
[2019-06-17 16:00] VITALS: BP 125/61
[2019-06-17] MEDS: DABIGATRAN ETEXILATE MESYLATE 150 MG CAPSULE PO SCH (17:27)
--- NOTE | 2019-06-17 18:55 | NUR ---
MS RN CLOSING NOTE PATIENT IN BED RESTING COMFORTABLY. PATIENT IN NO ACUTE DISTRESS. NO SOB NOTED. PATIENT BREATHING ON OXYGEN NC AT 2L. PATIENT BREATHING IS EVEN AND UNLABORED. PATIENT IS ALERT AND ORIENTED X2. PATIENT MAINTAINED ON A 1:1 SITTER. PATIENT KEPT CLEAN, DRY, REPOSITIONED, AND COMFORTABLE THROUGHOUT SHIFT. PATIENT EXTREMITIES OFFLOADED ON PILLOW. SAFETY PRECAUTIONS IN PLACE. PATIENT BED IS LOCKED AND IN LOWEST POSITION. CALL LIGHT WITHIN REACH. WILL ENDORSE CARE TO PM SHIFT FOR ARIAN.
--- NOTE | 2019-06-17 19:30 | NUR ---
MS RN OPENING NOTES: RECEIVED PT ON 2LPM VIA NC AND IS TOLERATING WELL. CAREGIVER AND SITTER AT BEDSIDE. PT APPEARS TO BE ALERTED AND ORIENTED X 2 WITH QUECHAN NOTED. PT HAS IV ON L AC #18G AND R FOREARM #18G. PT CURRENTLY H/L. NOTED BILATERAL LEGS WITH EDEMA +4 AND ELEVATED WITH A PILLOW. BED KEPT IN LOW, LOCKED POSITION, AND SIDE RAILS X 2UP. WILL CONTINUE TO MONITOR PT.
--- NOTE | 2019-06-17 19:37 | NUR ---
MS RN NOTES: DR. TREADWELL ON FLOOR. OK TO HAVE SITTER FOR PT PT GETS CONFUSED FROM TIME TO TIME. ALSO, BROUGHT UP BILATERAL LEGS EDEMA AGAIN TO HIM. PER EBEN, NO NEW ORDERS AT THIS TIME.
[2019-06-17 20:00] VITALS: BP_SYST 126; BP_SYST 130; BP_DIAS 47; BP_DIAS 76
[2019-06-18] VITALS (16 sets, daily range): BP systolic 105–139; BP diastolic 36–73
--- NOTE | 2019-06-18 06:23 | NUR ---
MS RN CLOSING NOTES: ALL NEEDS WERE ATTENDED AND ANTICIPATED FOR. PT ASLEEP AT THIS TIME AND RESTING COMFORTABLY. PT ON 2LPM VIA NC AND IS TOLERATING WELL. SITTER AT BEDSIDE FOR SAFETY PRECAUTIONS. PT TURNED AND REPOSITIONED Q 2HRS. BILATERAL LEGS ELEVATED WITH PILLOW. PT HAS IV ON LAC #18G AND IS PATENT AND INTACT. CURRENTLY H/L. PT ALSO HAS IV ON R FOREARM #20G AND IS PATENT AND INTACT. ALSO H/L. BED KEPT IN LOW, LOCKED POSITION, AND SIDE RAILS X 2UP. WILL ENDORSE TO AM NURSE FOR ARIAN.
[2019-06-18 07:49] LABS: BASOPHILS % (AUTO) 0.5 % (0.0-2.0); HEMATOCRIT 36 % (33-45); HEMOGLOBIN 11.8 g/dL (11.5-14.8); LYMPHOCYTES # (AUTO) 0.9 /CMM (0.8-4.8); LYMPHOCYTES % (AUTO) 16.3 % (20.0-44.0); MEAN CORPUSCULAR HGB CONC 33 g/dl (31.0-36.0); MEAN CORPUSCULAR VOLUME 96 fL (82-100); MONOCYTES # (AUTO) 0.5 /CMM (0.1-1.30); MONOCYTES % (AUTO) 8.8 % (2.0-12.0); NEUTROPHILS # (AUTO) 3.8 /CMM (1.8-8.9); NEUTROPHILS % (AUTO) 71.4 % (43.0-81.0); PLATELET COUNT (AUTO) 117 /CMM (150-450); RED BLOOD CELL COUNT(AUTO) 3.75 MIL/uL (4.0-5.2); WHITE BLOOD COUNT (AUTO) 5.3 K/uL (4.3-11.0)
--- NOTE | 2019-06-18 08:00 | NUR ---
RN NOTES RECEIVED PATIENT IN THE BED A/O X2/3 WITH HARD OF HEARING. PATIENT REFUSED PAIN NO ACUTE RESPIRATORY DISTRESS. EDEMA BILATERAL LOWER EXTREMITIES,AND REDNESS, HARD TO TOUCH KEEP ELEVATED BY PILLOWS, PATIENT BEDBOUND ASSIST TURN AND REPOSTION Q 2 HR V/S TAKEN BP 115/40, P-45, HOSPITALIST AWARE OF. 1:1 SITTER NEXT TO THE PATIENT FOR SAFETY, NEEDS ATTENDED AND ANTICIPATED, ADMINISTERED SCHEDULED MEDICATION, PATIENT EAT SELF TOLERANCE 40% OF BREAKFAST, CALL LIGHT WITHIN TO REACH. PATIENT INCONTINENT, USING DIAPER APPLIED Z-GUARD, CONTINUED MONITORING.
[2019-06-18 08:04] LABS: CALCIUM, SERUM 7.6 mg/dL (8.5-10.1); CREATININE 0.8 mg/dL (0.6-1.3); MAGNESIUM 1.7 mg/dL (1.8-2.4); PHOSPHORUS 4.1 mg/dL (2.5-4.9); POTASSIUM 3.8 mmol/L (3.5-5.1)
[2019-06-18] MEDS: DABIGATRAN ETEXILATE MESYLATE 150 MG CAPSULE PO SCH ×2 (09:01→17:42)
--- NOTE | 2019-06-18 09:16 | NUR ---
RN NOTES PT WITH THE PATIENT AT THIS TIME.
[2019-06-18 10:46] LABS: ABG BASE EXCESS 0.5 mmol/L; ABG OXYGEN SATURATION 97.5 % (92.0-98.5); ABG PCO2 60.4 mmHg (35.0-45.0); ABG PH 7.287 (7.350-7.450); ABG PO2 107.6 mmHg (75.0-100.0); AaDO2 35.3 mmHg; COHb 1.3 % (0.5-1.5); MetHb 0.5 % (0.0-1.5); O2Hb 95.7 % (94.0-97.0); SITE, ABG Left Radial; VENT MODE, BG NASAL CANNULA
--- NOTE | 2019-06-18 10:48 | NUR ---
rn notes seem patient by hospitalist Dr. Tomas, , and team leader surgery Dr Morrell, ECHO done, also TRANSFER PATIENT TO THE TELE, TELE MONITOR ON -, blood gas done by RT WAITING FOR RESULT. continued monitoring.
--- NOTE | 2019-06-18 10:53 | NUR ---
RN NOTES GET BLOOD GAS RESULT PH-7.28, PCO2- 60.4, PO2- 107.6, HCO3- 28.2, DR HARRIS, AND DR EATON AWARE OF RESULT, DECREASED O2-TO 1L NC, PATENT A/O X2/3 WITH CONFUSION, 1:1 SITTER NEXT TO THE BED FOR SAFETY, ASSIST TURN AND REPOSTION Q 2 HR. CONTINUED MONITORING.
[2019-06-18] MEDS: Magnesium 1GM/D5W 100ML PREMIX 100 ML IV SCH ×2 (11:08→12:19)
[2019-06-18 12:15] LABS: ABG BASE EXCESS 5.4 mmol/L; ABG OXYGEN SATURATION 93.5 % (92.0-98.5); ABG PH 7.336 (7.350-7.450); ABG PO2 68.4 mmHg (75.0-100.0); AaDO2 27.8 mmHg; COHb 1.6 % (0.5-1.5); MetHb 0.4 % (0.0-1.5); O2Hb 91.6 % (94.0-97.0); SITE, ABG Left Radial; VENT MODE, BG NASAL CANNULA
--- NOTE | 2019-06-18 12:23 | NUR ---
RN NOTES PER HOSPITALIST Dr EATON TRANSFER PATIENT TO THE ICU FRO RESULT OF BLOOD GAS RESULT, PATIENT NEED CPAP. CALLED INCOME TAX MANAGER FOR ICU BED.
--- NOTE | 2019-06-18 12:55 | NUR ---
AIR BAG BUILDER NOTES PATIENT TRANSFERRED ICU ROOM 254, PATIENT STABLE NO ACUTE RESPIRATORY DISTRESS, V/S WAS BP-116/40, P-35, R-18, O2-95 ON O2-1LNC, T-98.2. TELE MONITOR ON. BEDSIDE REPORT GIVEN ANA RECINOS. RN VERBALIZED UNDERSTANDING. BELONGING WITH THE PATIENT.
[2019-06-18] MEDS ORDERED: CEFTRIAXONE 1 G in IV D5W 50 ML IV SCH (13:00)
--- NOTE | 2019-06-18 13:15 | NUR ---
STORE PERSON PT TRANSFERRED TO ICU 254 FROM 3 BY BED FOR BRADYCARDIA AND ABNORMAL ABG. PT AWAKE BUT CONFUSED. FOLLOWS COMMANDS. REMAINS BRADYCARDIC IN 40'S. O2 AT 3L NC IN PLACE. PT'S SITTER AT BEDSIDE.
--- NOTE | 2019-06-18 14:00 | NUR ---
SALES INSPECTOR PT REMAINS CONFUSED REQUIRING REORIENTATION. EASILY AROUSEABLE, FOLLOWING COMMANDS. RECYCLING OPERATIONS MANAGER SHOW SLOW ATRIAL FIB IN 40'S. BP STABLE. SPO2 VARIABLE 88-94% WITH O2 AT 1L NC. NO FAMILY AVAILABLE. MARKETING AGENT SAID THAT PT'S FAMILY IS IN [place].
--- NOTE | 2019-06-18 16:00 | NUR ---
HOME CARE SPECIALIST PT TO BE SEEN BY WOUND MANAGEMENT. MOSTLY REDDENED AREAS SEEN. PERINEAL AND AREAS UNDER SKIN FOLDS EXCORIATIATED. BARRIER CREAM IN PLACE. PT INCONTINENT. CLEANED AND DIAPER CHANGED.
--- NOTE | 2019-06-18 18:00 | NUR ---
AUDIOLOGY TECHNICIAN END NOTE PT PULLED OUT IV SITE, PT CLEANED AND LINENS CHANGED. WILL START ANOTHER SITE WHEN PT CALMER. PT HAD FRIENDS VISIT. FRIEND ARGENIS GIBBS AT STATED THAT PT HAD AN APS ADVOCATE WORKING WITH THE PT. PT HAD PREVIOUSLY HAD PLACEMENT AVAILABLE BUT HAD PT HAD REJECTED THEM, ADDITIONALLY, PT HAD CAREGIVERS AROUND THE CLOCK AND SHE FIRED ALL OF THEM. ARGENIS SAID THAT THE PT SEEMS TO HAVE A RAPPORT WITH THE APS ADVOCATE AND MIGHT BE WILLING TO HELP WITH PLACEMENT WHEN PT IS READY. SHE ALSO SAID THAT PT WAS A AND THAT [facility] PT CONTINUES TO BE BRADYCARDIC WITH STRONG PULSE. BP STABLE. PT REMAINS AWAKE BUT CONFUSED, ABLE TO FOLLOW COMMANDS. SPO2 STILL VARIABLE AT 89-94% ON 1L NC. WILL CONTINUE TO MONITOR.
--- NOTE | 2019-06-18 19:35 | NUR ---
RN NOTES RECEIVED PT AWAKE WATCHING TV ON BED. WITH ISOLATION FOR MRSA NARES. ISOLATION PRECAUTION RENDERED. PATIENT IS AOX2 LOWER BRULE ON O2 1 LMP VIA NC SATURATING 87-91% A-FIB SVR HR 40'S - 50'S LEGAL INSTRUMENTS EXAMINER AWARE PER AM NURSE. PATIENT IS ASYMPTOMATIC COMMUNICATES WELL. WITH IV SITE ON LAC G 18 AND RAC G 18 INTACT AND PATENT. KEPT PT CLEAN AND DRY. CALL LIGHT KEPT WITHIN EASY REACH INSTRUCTION PROVIDED AND PATIENT IS AWARE TO USE IT. ENCOURAGED TO TURN AND REPOSITION SIDE TO SIDE BUT PATIENT REFUSED AT THIS TIME. BED LOCKED AND PLACED IN LOWEST POSSIBLE POSITION. WILL MONITOR CLOSELY,
--- NOTE | 2019-06-18 23:01 | NUR ---
RN NOTES INFORMED ERICA LINDQUIST REGARDING LAB RESULT OF BLOOD CULTURE OF GRAM POSITIVE COCCI IN CLUSTERS WITH NEW ORDER TO DC ROCEPHIN AND START ZOSYN 3.375 GM IV Q6H AND VANCOMYCIN PHARMACY TO DOSE NOTED AND CARRIED OUT ORDERS.
[2019-06-18] MEDS ORDERED: PIPERACILLIN /TAZOBACTAM 3.375 G VIAL IV ONE (23:45)
[2019-06-18] MEDS: PIPERACILLIN /TAZOBACTAM 3.375 G in IV D5W 50 ML IV SCH (23:49)
[2019-06-19] VITALS (27 sets, daily range): BP systolic 86–133; BP diastolic 26–79
[2019-06-19] MEDS ORDERED: VANCOMYCIN 1 GM in IV D5W 250ml IV ONE (01:00)
[2019-06-19] MEDS ORDERED: VANCOMYCIN 1 GM VIAL ONE (01:01)
[2019-06-19 04:31] LABS: BASOPHILS % (AUTO) 0.4 % (0.0-2.0); EOSINOPHILS % (AUTO) 0.3 % (0.0-6.0); HEMATOCRIT 36 % (33-45); LYMPHOCYTES # (AUTO) 0.8 /CMM (0.8-4.8); LYMPHOCYTES % (AUTO) 10.7 % (20.0-44.0); MEAN CORPUSCULAR HGB CONC 33 g/dl (31.0-36.0); MEAN CORPUSCULAR VOLUME 96 fL (82-100); MONOCYTES # (AUTO) 0.5 /CMM (0.1-1.30); MONOCYTES % (AUTO) 7.2 % (2.0-12.0); NEUTROPHILS # (AUTO) 5.9 /CMM (1.8-8.9); NEUTROPHILS % (AUTO) 81.4 % (43.0-81.0); PLATELET COUNT (AUTO) 115 /CMM (150-450); RED BLOOD CELL COUNT(AUTO) 3.74 MIL/uL (4.0-5.2); WHITE BLOOD COUNT (AUTO) 7.2 K/uL (4.3-11.0)
[2019-06-19 04:46] LABS: CALCIUM, SERUM 7.6 mg/dL (8.5-10.1); CREATININE 0.8 mg/dL (0.6-1.3); MAGNESIUM 2.1 mg/dL (1.8-2.4); PHOSPHORUS 4.4 mg/dL (2.5-4.9)
[2019-06-19] MEDS ORDERED: PIPERACILLIN /TAZOBACTAM 3.375 G VIAL IV ONE (04:54)
[2019-06-19] MEDS: PIPERACILLIN /TAZOBACTAM 3.375 G in IV D5W 50 ML IV SCH ×4 (05:11→23:36)
--- NOTE | 2019-06-19 06:20 | NUR ---
RN NOTES PATIENT ASLEEP WELL ON BED. BREATHING EVEN AND UNLABORED IN O2 1 LPM VIA NC. SATURATION REMAINED > 87%, A-FIB/ A-FLUTTER WITH SVR HR BETWEEN 38-50's. AFEBRILE. DENIES PAIN,. NO CHEST PAIN. NO CHANGE OF MENTAL STATUS. INCONTINENT CARE RENDERED, BEDBATH DONE. IV DRESSING CHANGES TWICE. KEPT PATIENT CLEAN AND DRY. ALL DUE MEDICINE ADMINISTERED AND TOELRATED WELL. NO ASE FROM NEW IV ATB. KEPT PATIENT BED IN LOCKED AND IN LOWEST POSSIBLE POSITION.BED ALARM KEPT IN PLACED. WILL ENDORSE CONTINUITY OF CARE TO AM NURSE.
[2019-06-19] MEDS ORDERED: FEE PK DOSING 1 MIN EA MC ONE (07:52)
[2019-06-19 08:00] LABS: THYROID STIMULATING HORMONE 1.288 uIU/mL (0.358-3.74)
[2019-06-19] MEDS ORDERED: PIPERACILLIN /TAZOBACTAM 3.375 G in IV D5W 100 ML IV SCH (08:00)
--- NOTE | 2019-06-19 08:17 | NUR ---
rn notes 0730-received patient from rn. patient remains on 1 lpm/nc.patient starts to pull oxymeter, bp cuff, explained to her the need for them but still she refused to have them on. 0810-patient pulled IV line out. refused assessments, offered breakfast tray, she refused as well. monitor patient status.
[2019-06-19] MEDS: MUPIROCIN OINT 2% 22 GM TUBE TP SCH ×2 (09:00→20:29)
[2019-06-19] MEDS: DABIGATRAN ETEXILATE MESYLATE 150 MG CAPSULE PO SCH ×2 (09:00→16:14)
--- NOTE | 2019-06-19 09:32 | NUR ---
rn notes 09-visited by her lawn care worker, reminded lawn care worker about patient hearing aid needing battery replacement. offered beakfast, BP measurement thru lawn care worker but patient still refusing. sits at edge of bed, legs elevated on pillows. patient remains on afib, weigher and charger notified Dr. Tomas of patient behavior. monitor and maintain patient safety
--- NOTE | 2019-06-19 10:14 | NUR ---
rn notes 1000-seen by Dr. oTmas, patient continues to refuse assessments from Dr. Tomas.
[2019-06-19] MEDS ORDERED: PIPERACILLIN /TAZOBACTAM 3.375 G in IV D5W 50 ML IV SCH (12:00)
[2019-06-19] MEDS: CLOTRIMAZOLE 1% 15 GM TUBE TP SCH ×2 (13:10→18:21)
--- NOTE | 2019-06-19 13:22 | NUR ---
rn notes 1300-patient ate lunch, tolerated food consistency well. she was seen by Dr. Jose L MD was updated of patient status- behavior,refusing care.
--- NOTE | 2019-06-19 16:10 | NUR ---
rn notes [id number] awake, alert, noted she is calmer and n more cooperative than earlier,she agreed to have iv line inserted, BP cuff placed and she kept her oxymeter in place. she was evaluated by EPS, she responds somewhat appropriate this time. continue monitor patient status. Her top case assembler, asael, from [facility] also visited and she stated that patient has been "declining" for the past months.
[2019-06-19] MEDS ORDERED: VANCOMYCIN 1 GM in IV D5W 250 ML IV SCH (18:00)
--- NOTE | 2019-06-19 19:19 | NUR ---
rn notes 1730-patient fed safely. tolerated food consistency well. patient remains cooperative.no sign of pain. safety maintained.UZ BLE being done this time 1900-patient appears comfortable, follows simple commands. report given to rn for further care
--- NOTE | 2019-06-19 19:30 | NUR ---
RN NOTES RECEIVED PATIENT AWAKE ON BED. ON ISOLATION FOR MRSA NARES. ISOLATION PRECAUTION STRICTLY OBSERVED. NO ACUTE RESPIRATORY DISTRESS. ON O2 2LPM VIA NC SATURATION 88% WARMTH TO TOUCH. MARIA. UPPER LOBE CLEAR MARIA. LOWER LOBE DIMINISHED. AFEBRILE. TELE MONITOR REVEALS AFIB WITH SVR HR 40 CARDIOLOGY AWARE. WITH STRONG PERIPHERAL PULSES. PATIENT IS AOX2 , RESPONSIVE TO VERBAL AND TACTILE STIMULI WITH DIFFICULTY OF HEARING. IV SITE ON LFA G 20 INTACT AND PATENT WITH ONGOING VANCOMYCIN TO CONSUME. ENCOURAGED TO TURN AND REPOSITION BUT PATIENT REFUSED AT THIS TIME, PER PATIENT SHE IS COMFORTABLE ON HER POSITION. EXPLAINED THE RISK AND BENEFITS OF TURNING AND REPOSITIONING PATIENT IS VERBALIZED UNDERSTANDING. CALL LIGHT KEPT WITHIN EASY REACH. REMINDED TO USED FOR ASSISTANCE KEPT BED IN LOWEST POSSIBLE POSITION BED ALARM ON FOR SAFETY.
[2019-06-19] MEDS: DOXYCYCLINE HYCLATE (100 MG) 100 MG TABLET PO SCH (20:28)
[2019-06-20] VITALS (22 sets, daily range): BP systolic 96–134; BP diastolic 26–62
--- NOTE | 2019-06-20 03:00 | NUR ---
RN NOTES PATIENT IS REMOVING EVERYTHING INCLUDING HER OXYGEN AND STARTED TO DESATURATE SPOKE TO PATIENT SLOWLY EXPLAINED THE RISK AND BENEFITS. PATIENT STARTED TO GET AGITATED AND HITTING STAFF. INFORMED LEXA RADAR ENGINEERING TEACHER AND GOT AN ORDER TO RESTRAINT PATIENT OR TO HAVE A 1:1 SITTER. NOTED AND CARRIED OUT ORDER
[2019-06-20 04:48] LABS: BASOPHILS % (AUTO) 0.4 % (0.0-2.0); EOSINOPHILS % (AUTO) 2.1 % (0.0-6.0); HEMATOCRIT 37 % (33-45); HEMOGLOBIN 12.1 g/dL (11.5-14.8); LYMPHOCYTES # (AUTO) 0.6 /CMM (0.8-4.8); LYMPHOCYTES % (AUTO) 10.5 % (20.0-44.0); MEAN CORPUSCULAR HGB CONC 33 g/dl (31.0-36.0); MEAN CORPUSCULAR VOLUME 98 fL (82-100); MONOCYTES # (AUTO) 0.6 /CMM (0.1-1.30); MONOCYTES % (AUTO) 9.7 % (2.0-12.0); NEUTROPHILS # (AUTO) 4.5 /CMM (1.8-8.9); NEUTROPHILS % (AUTO) 77.3 % (43.0-81.0); PLATELET COUNT (AUTO) 102 /CMM (150-450); RED BLOOD CELL COUNT(AUTO) 3.75 MIL/uL (4.0-5.2); WHITE BLOOD COUNT (AUTO) 5.9 K/uL (4.3-11.0)
[2019-06-20 05:07] LABS: CALCIUM, SERUM 7.8 mg/dL (8.5-10.1); MAGNESIUM 1.8 mg/dL (1.8-2.4); PHOSPHORUS 3.5 mg/dL (2.5-4.9); POTASSIUM 4.3 mmol/L (3.5-5.1)
[2019-06-20] MEDS: PIPERACILLIN /TAZOBACTAM 3.375 G in IV D5W 50 ML IV SCH (06:13)
[2019-06-20] MEDS: DOXYCYCLINE HYCLATE (100 MG) 100 MG TABLET PO SCH ×2 (08:25→20:23)
[2019-06-20] MEDS: DABIGATRAN ETEXILATE MESYLATE 150 MG CAPSULE PO SCH ×2 (08:25→16:14)
[2019-06-20] MEDS: MUPIROCIN OINT 2% 22 GM TUBE TP SCH ×2 (08:26→20:24)
[2019-06-20] MEDS: CLOTRIMAZOLE 1% 15 GM TUBE TP SCH ×2 (08:27→16:11)
--- NOTE | 2019-06-20 08:45 | NUR ---
received pt from electrician maintenance, alert, follows commands, confused at times,A fib HR 43-47, aware, on 1L 02 sat well, tolerates diet, eats very little, diaper on, sitter at the bedside, v/s stable, no pain, pt turned and repositioned.
[2019-06-20] MEDS: FUROSEMIDE 40 MG/4 ML VIAL IV SCH ×3 (08:51→16:13)
[2019-06-20 11:52] LABS: ABG OXYGEN SATURATION 97.8 % (92.0-98.5); ABG PCO2 93.8 mmHg (35.0-45.0); ABG PH 7.246 (7.350-7.450); COHb 1.9 % (0.5-1.5); MetHb 0.5 % (0.0-1.5); O2Hb 95.5 % (94.0-97.0); SITE, ABG Right Brachial; VENT MODE, BG NASAL CANNULA
--- NOTE | 2019-06-20 12:00 | NUR ---
PT. IS AWAKE AND FOLLOW COMMANDS . DECREASED O2 FLOW FROM 2 LPM TO 0.5 LPM VIA NASAL CANNULA DUE TO PCO2 93 AND PAO2 112mmHg. RN NOTIFIED ON CHANGES. Addendum: 06/20/19 at 1201 by RUTH CALVO RT Amended: Links added.
[2019-06-20] MEDS: PIPERACILLIN /TAZOBACTAM 3.375 G in IV D5W 100 ML IV SCH ×2 (12:43→21:07)
--- NOTE | 2019-06-20 16:05 | NUR ---
pt is resting in the bed, alert, follows simple commands, confused at times, A fib, on 1L 02 sat well, v/s stable, no pain, pt cleaned, changed and repositioned.
[2019-06-20] MEDS: LACTOBACILLUS RHAMNOSUS GG 1 EACH CAP.SPRINK PO SCH (16:13)
--- NOTE | 2019-06-20 18:07 | NUR ---
pt transferred to [facility], ACLS followed, v/s stable, no pain.
--- NOTE | 2019-06-20 18:10 | NUR ---
FUEL OPERATOR RECEIVING RECEIVED PATIENT A/OX2-3. NO ACUTE DISTRESS OR SOB. ATTACHED TO TELE, AFIB 43. SPO2 95% ON 2LPM O2 VIA NC. L FA 20G C/D/I. BP 102/36, TEMP 97.8, RR 20.
--- NOTE | 2019-06-20 19:25 | NUR ---
TELE/RN NOTES PATIENT RECEIVED IN BED AT THIS TIME, NO S/S OF ACUTE DISTRESS NOTED, RESPIRATION EVEN AND UNLABORED, NO SOB NOTED, PATIENT ALERT AND ORIENTED X2, DENIES ANY PAIN OR DISCOMFORT AT THIS TIME. LFA 20 GAUGE NOTED WITH NO S/S OF INFECTION, INFILTRATION, ISOLATION PRECAUTIONS MAINTAINED AND STRICTLY OBSERVED, SAFETY MAINTAINED, BED AT THE LOWEST LOCKED POSITION, CALL LIGHT WITHIN REACH. PATIENT ON O2, 2LPM VIA NASAL CANULA, SATURATION 98% AT THIS TIME, HOB KEPT ELEVATED, PATIENT ON TELE MONITORING WITH A-FIB WITH THE RATE OF 42, MD AWARE. WILL CONTINUE TO MONITOR PATIENT PER PLAN OF CARE.
[2019-06-21] VITALS: BP 121/46
[2019-06-21 04:00] VITALS: BP 125/45
--- NOTE | 2019-06-21 04:38 | NUR ---
PATIENT IS CONFUSED, PULLED HER IV LINE, PATIENT IS OFF SITTER, CALLED FIELD SALES CONSULTANT LEXA AT THIS TIME WITH NEW ORDER TO APPLY BILATERAL SOFT WRIST RESTRAINT. NOTED AND CARRIED OUT
[2019-06-21] MEDS: PIPERACILLIN /TAZOBACTAM 3.375 G in IV D5W 100 ML IV SCH ×3 (05:03→20:19)
--- NOTE | 2019-06-21 07:18 | NUR ---
TELE/RN NOTES PATIENT IN BED AT THIS TIME, NO S/S OF ACUTE DISTRESS NOTED, RESPIRATION EVEN AND UNLABORED, NO SOB NOTED. NO S/S OF PAIN NOTED, PATIENT PULLED OUT HER IV FROM THE RIGHT THUMB AGAIN AT THIS TIME, DESPITE BEING IN BILATERAL WRIST RESTRAINT, ENDORSE TO AM SHIFT NURSE, ISOLATION PRECAUTIONS MAINTAINED AND STRICTLY OBSERVED, SAFETY MAINTAINED, BED AT THE LOWEST LOCKED POSITION, CALL LIGHT WITHIN REACH. PATIENT ON O2, 2LPM VIA NASAL CANULA, SATURATION 98% AT THIS TIME, HOB KEPT ELEVATED, PATIENT ON TELE MONITORING WITH A-FIB WITH THE RATE OF 51, MD AWARE. ENDORSED TO AM SHIFT NURSE FOR ARIAN
[2019-06-21 07:55] LABS: BASOPHILS % (AUTO) 0.2 % (0.0-2.0); EOSINOPHILS % (AUTO) 1.1 % (0.0-6.0); HEMATOCRIT 35 % (33-45); HEMOGLOBIN 11.5 g/dL (11.5-14.8); LYMPHOCYTES # (AUTO) 0.6 /CMM (0.8-4.8); LYMPHOCYTES % (AUTO) 9.5 % (20.0-44.0); MEAN CORPUSCULAR HGB CONC 33 g/dl (31.0-36.0); MEAN CORPUSCULAR VOLUME 97 fL (82-100); MONOCYTES # (AUTO) 0.6 /CMM (0.1-1.30); MONOCYTES % (AUTO) 9.6 % (2.0-12.0); NEUTROPHILS % (AUTO) 79.6 % (43.0-81.0); PLATELET COUNT (AUTO) 96 /CMM (150-450); RED BLOOD CELL COUNT(AUTO) 3.61 MIL/uL (4.0-5.2); WHITE BLOOD COUNT (AUTO) 6.3 K/uL (4.3-11.0)
[2019-06-21 08:00] VITALS: BP 127/41
--- NOTE | 2019-06-21 08:00 | NUR ---
grace ramos notes contacted nursing computer operations supervisor tyler patton for midline for pt. no iv access d/t hard stick. Addendum: 06/21/19 at 0842 by NAVNEET HOGUE RN ASH for midline nurse 11 am.
[2019-06-21 08:07] LABS: ALBUMIN 2.3 g/dL (3.4-5.0); BILIRUBIN,TOTAL 0.7 mg/dL (0.2-1.0); CALCIUM, SERUM 7.2 mg/dL (8.5-10.1); CREATININE 0.9 mg/dL (0.6-1.3); MAGNESIUM 1.4 mg/dL (1.8-2.4); PHOSPHORUS 3.4 mg/dL (2.5-4.9); POTASSIUM 3.2 mmol/L (3.5-5.1); TOTAL PROTEIN, SERUM 6.2 g/dL (6.4-8.2)
[2019-06-21] MEDS ORDERED: acetaZOLAMIDE SODIUM 500 MG/VIAL VIAL IV ONE (09:00)
[2019-06-21] MEDS: LACTOBACILLUS RHAMNOSUS GG 1 EACH CAP.SPRINK PO SCH ×2 (09:15→18:19)
[2019-06-21] MEDS: DOXYCYCLINE HYCLATE (100 MG) 100 MG TABLET PO SCH ×2 (09:15→20:19)
[2019-06-21] MEDS: POTASSIUM CHLORIDE 20 MEQ TAB.PRT.SR PO SCH ×3 (09:15→11:29)
[2019-06-21] MEDS: CLOTRIMAZOLE 1% 15 GM TUBE TP SCH ×2 (09:16→18:20)
[2019-06-21] MEDS: DABIGATRAN ETEXILATE MESYLATE 150 MG CAPSULE PO SCH ×2 (09:16→18:19)
[2019-06-21] MEDS: MUPIROCIN OINT 2% 22 GM TUBE TP SCH ×2 (09:16→20:20)
[2019-06-21 09:18] LABS: EOSINOPHILS % (MANUAL) 1 % (0-4); LYMPHOCYTES % (MANUAL) 13 % (16-48); MONOCYTES % (MANUAL) 6 % (0-11.0); NEUTROPHILS % (MANUAL) 80 (42-76)
[2019-06-21] MEDS: Magnesium 1GM/D5W 100ML PREMIX 100 ML IV SCH ×4 (11:30→14:57)
[2019-06-21 12:00] VITALS: BP 133/43
--- NOTE | 2019-06-21 13:55 | NUR ---
HAND PACKER NOTES CALLED DR EATON TO REPORT CRITICAL LAB RESULTS RE: BLOOD CX GRAM POSITIVE COCCI. PER MD, WILL ORDER VANCOMYCIN. CHARGE NURSE, NICOLE ROSARIO NOTIFIED.
[2019-06-21 16:00] VITALS: BP 116/44
--- NOTE | 2019-06-21 19:12 | NUR ---
ORGANIZATIONAL EFFECTIVENESS CONSULTANT END OF SHIFT NOTES PT IN BED, ASLEEP. ON 3L NC O2 SAT WNL. ON TELE AFIB ZULEIKA ASYMPTOMATIC. PT'S CAREGIVER FED PT DINNER FROM HOME. PT NOT IN PAIN/RESP DISTRESS AT THIS TIME. BED IN LOCKED/LOWEST POSITION. CALL LIGHT IN REACH. ENDORSED TO PM NURSE FOR ARIAN.
--- NOTE | 2019-06-21 19:31 | NUR ---
LAYER UP NOTE PATIENT IN BED A/O X 1-2. PATIENT STABLE AT THIS TIME HR 48 AFIB ON THE MONITOR. PATIENT ASYMPTOMATIC, SKIN WARM AND DRY GOOD COLOR. PATIENT DENIES SOB AT THIS TIME OR CHEST PAIN. PATIENT IV PATENT AND INTACT. ISOLATION PRECATIONS IN PLACE, SAFETY PRECAUTIONS IN PLACE. PATIENT TURNED, BED IN LOWEST LOCKED POSITION CALL LIGHT WITHIN REACH.
[2019-06-21 20:00] VITALS: BP 122/34
[2019-06-21 22:24] LABS: ABG OXYGEN SATURATION 95.3 % (92.0-98.5); SITE, ABG Right Radial
--- NOTE | 2019-06-21 22:36 | NUR ---
REDYE HAND NOTE CALLED ERICA MARIE TO CONFIRM PATIENTS NOCTURNAL BIPAP, BASELINE ABG DRAWN P CO2 102.4 ERICA MARIE AWARE AND SETTINGS PRESCRIBED 20/5 RR 18 AND FIO2 28%
--- NOTE | 2019-06-21 22:56 | NUR ---
RT NOTE ABG DONE ONE TIME. RAN BLOOD GAS TWICE FOR ACCURACY. INCORRECT ABG TRANSFERRED TO [facility]. CORRECT ABG GIVEN TO CHARGED RN SHOWS. PH 7.24 PCO2 102.4 PO2 70.9 HCO3- 43.1
[2019-06-21 23:05] LABS: ABG BASE EXCESS 10.8 mmol/L; ABG PCO2 102.4 mmHg (35.0-45.0); ABG PH 7.242 (7.350-7.450); ABG PO2 70.9 mmHg (75.0-100.0); AaDO2 7.9 mmHg; COHb 2.2 % (0.5-1.5); MetHb 0.4 % (0.0-1.5); O2Hb 91.4 % (94.0-97.0); VENT MODE, BG Nasal cannula
[2019-06-22] VITALS (26 sets, daily range): BP systolic 109–162; BP diastolic 36–101
[2019-06-22 01:50] LABS: ABG BASE EXCESS 12.6 mmol/L; ABG PCO2 79.7 mmHg (35.0-45.0); ABG PH 7.344 (7.350-7.450); ABG PO2 52.8 mmHg (75.0-100.0); AaDO2 52.8 mmHg; COHb 2.7 % (0.5-1.5); MetHb 0.4 % (0.0-1.5); O2Hb 86.9 % (94.0-97.0); SITE, ABG Right Brachial; VENT MODE, BG S/T 20/5 RR18 28%
--- NOTE | 2019-06-22 01:55 | NUR ---
RT NOTE PATIENT NON COMPLIANT WITH BIPAP. PATIENT PLACED ON SIMPLE MASK. SPO2 90%. PRIMARY NURSE NOTIFIED. NO SIGNS OF RESPIRATORY DISTRESS NOTED. WILL CONTINUE TO MONITOR PATIENT. Addendum: 06/22/19 at 0205 by RINKU MOLINA RT Amended: Links added.
--- NOTE | 2019-06-22 02:48 | NUR ---
POTATO GRADER NOTE PATIENT ABG POST BIPAP TREATMENT IMPROVED, PATIENT NOW A/O X2 ABLE TO FOLLOW COMMANDS. RN WILL CONTINUE TO MONITOR FOR CHANGES.
[2019-06-22] MEDS: PIPERACILLIN /TAZOBACTAM 3.375 G in IV D5W 100 ML IV SCH ×3 (05:41→21:45)
[2019-06-22 06:45] LABS: BASOPHILS % (AUTO) 0.3 % (0.0-2.0); EOSINOPHILS % (AUTO) 0.3 % (0.0-6.0); HEMATOCRIT 34 % (33-45); HEMOGLOBIN 11.1 g/dL (11.5-14.8); LYMPHOCYTES # (AUTO) 0.6 /CMM (0.8-4.8); LYMPHOCYTES % (AUTO) 9.2 % (20.0-44.0); MEAN CORPUSCULAR HGB CONC 32 g/dl (31.0-36.0); MEAN CORPUSCULAR VOLUME 98 fL (82-100); MONOCYTES # (AUTO) 0.7 /CMM (0.1-1.30); MONOCYTES % (AUTO) 10.9 % (2.0-12.0); NEUTROPHILS # (AUTO) 5.1 /CMM (1.8-8.9); NEUTROPHILS % (AUTO) 79.3 % (43.0-81.0); PLATELET COUNT (AUTO) 111 /CMM (150-450); RED BLOOD CELL COUNT(AUTO) 3.49 MIL/uL (4.0-5.2); WHITE BLOOD COUNT (AUTO) 6.4 K/uL (4.3-11.0)
--- NOTE | 2019-06-22 07:00 | NUR ---
RN NOTES RECEIVED PT ON BED, LETHARGIC , RESPOND TO VERBAL STIMULI, ON 1.5 O2 N/C , RESPIRATION EVEN AND UNLABORED, ON TELE A.FIB , HR IN 50'S ,R UPPER ARM MIDLINE SITE CLEAN ,DRY AND INTACT, SR UP X3, CALL LIGHT WITHIN EASY REACH, BED LOCKED AND IN LOWEST POSITION, CONTINUE TO MONITOR
[2019-06-22 07:04] LABS: ALBUMIN 2.3 g/dL (3.4-5.0); BILIRUBIN,TOTAL 0.7 mg/dL (0.2-1.0); CALCIUM, SERUM 7.5 mg/dL (8.5-10.1); CREATININE 0.8 mg/dL (0.6-1.3); MAGNESIUM 2.2 mg/dL (1.8-2.4); PHOSPHORUS 3.2 mg/dL (2.5-4.9); POTASSIUM 3.6 mmol/L (3.5-5.1); TOTAL PROTEIN, SERUM 6.1 g/dL (6.4-8.2)
--- NOTE | 2019-06-22 07:25 | NUR ---
UTILIZATION REVIEW RN NOTE PATIENT REPORT GIVEN BEDSIDE. PATIENT TOLERATED THE REST OF THE NIGHT. PATIENT A/O X 1, LETHARGY RETURNING PICC LINE PATENT AND INTACT. PATIENT ZULEIKA/ AFIB ON THE MONITOR HR 50. PATIENT O2 SATURATION 96% BREATHING EVEN AND UNLABORED. ENDORSED POC TO AM FOR ARIAN.
[2019-06-22 08:47] LABS: ABG BASE EXCESS 9.8 mmol/L; ABG OXYGEN SATURATION 86.7 % (92.0-98.5); ABG PCO2 84.9 mmHg (35.0-45.0); ABG PH 7.284 (7.350-7.450); COHb 1.7 % (0.5-1.5); MetHb 0.6 % (0.0-1.5); O2Hb 84.7 % (94.0-97.0); PEEP,BG 5 cm H2O; SITE, ABG Left Radial; VENT MODE, BG BIPAP PS15
[2019-06-22] MEDS: DABIGATRAN ETEXILATE MESYLATE 150 MG CAPSULE PO SCH ×2 (09:00→17:24)
[2019-06-22] MEDS: LACTOBACILLUS RHAMNOSUS GG 1 EACH CAP.SPRINK PO SCH ×2 (09:00→17:24)
[2019-06-22] MEDS: DOXYCYCLINE HYCLATE (100 MG) 100 MG TABLET PO SCH ×2 (09:00→21:00)
--- NOTE | 2019-06-22 09:00 | NUR ---
RN NOTES PT IS MORE LETHARGIC , ABG DONE, MD NOTIFED REGARDING THE RESULTS , ORDER RECEIVED TO TRANSFER PT TO ICU .
--- NOTE | 2019-06-22 09:20 | NUR ---
RN NOTES PT TRANSFERRED TO ROOM ICU VIA ACLS PROTOCOL PER DR EATON ORDER WITH ALL HER BELONGINGS.
--- NOTE | 2019-06-22 09:20 | NUR ---
RN NOTES REPORT GIVEN OT GERMÁN RN FOR CONTINUITY OF CARE .
[2019-06-22] MEDS: CLOTRIMAZOLE 1% 15 GM TUBE TP SCH ×2 (09:37→15:42)
[2019-06-22] MEDS: MUPIROCIN OINT 2% 22 GM TUBE TP SCH ×2 (09:37→21:00)
--- NOTE | 2019-06-22 10:25 | NUR ---
RN NOTE 0960: Received patient lethargic, noted with confusion when awake, unable to state where she is and the today's year, responds to name. On Bipap 20/5, rate 18, 100% FIO2. With TK midline intact. Placed on the monitor, VSS at this time, Afib 40's. Held PO meds for now, MD aware. 1020: Endorsed care to Adam RECINOS. Noted patient with x3 episodes of removing Bipap, rendered reorientation but ineffective, placed back on HEEL PACKER restraints for safety.
[2019-06-22 11:31] LABS: ABG BASE EXCESS 9.6 mmol/L; ABG OXYGEN SATURATION 99.2 % (92.0-98.5); ABG PH 7.223 (7.350-7.450); ABG PO2 352.7 mmHg (75.0-100.0); AaDO2 259.3 mmHg; COHb 1.1 % (0.5-1.5); MetHb 0.7 % (0.0-1.5); O2Hb 97.4 % (94.0-97.0); SITE, ABG Left Radial; VENT MODE, BG BIPAP 20/5 PS15
[2019-06-22] MEDS: IPRATROPIUM NEB FS 0.5 MG/2.5 ML AMPUL.NEB NEB PRN (12:08)
[2019-06-22] MEDS: ALBUTEROL FS 2.5 MG/0.5 ML VIAL.NEB NEB PRN (12:08)
--- NOTE | 2019-06-22 14:15 | NUR ---
BRICK KILN BURNER: initial note, pt.is A/Ox1, rest, but uncooperative, on wrists restraints with Bipap mask remove attempts, O2 sat. over 94%, no pain, no c/o now, SB 45-60, long time by report, SBP over 90, plan: repeat ABG now, pt.was oriented for POC
--- NOTE | 2019-06-22 14:45 | NUR ---
SUPERVISOR RESEARCH KENNEL: ABG done by Tam, RT pH 7.52, CO2 45, O2 142, bicarb 36, reported to , removed Bipap, continue n/c, hold restraints, pt.is able to swallow ice chips, oriented again for POC, safety measures
[2019-06-22 14:58] LABS: ABG BASE EXCESS 12.4 mmol/L; ABG OXYGEN SATURATION 98.7 % (92.0-98.5); ABG PCO2 45.8 mmHg (35.0-45.0); ABG PH 7.521 (7.350-7.450); ABG PO2 142.2 mmHg (75.0-100.0); AaDO2 90.3 mmHg; COHb 1.2 % (0.5-1.5); MetHb 0.5 % (0.0-1.5); SITE, ABG Left Radial; VENT MODE, BG BIPAP 25/5 PS20
--- NOTE | 2019-06-22 16:07 | NUR ---
IMPREGNATING TANK OPERATOR: O2sat.89-91% on 2 L n/c, increased to 4L, Afib HR 45-55 now, SBP over 100, pt.is A/Ox1-2, can follow simple commands, but confused occas., all PM, skin care done, no any pain
--- NOTE | 2019-06-22 17:00 | NUR ---
SENIOR GAMEMASTER: Tam,RT updated , got order: place pt. back on Bipap and keep over night with parameters: I/E /, rate 20 FiO2 30%
--- NOTE | 2019-06-22 17:30 | NUR ---
LIFE ENRICHMENT SPECIALIST: pt.is uncooperative, confused now, O2 91-93%, removed leads, BP cuff, said: I want to go home, refused to take PO meds, oriented for POC, issues to stay in ICU and critical risks, placed back on Bipap, wrists restraints applied back
--- NOTE | 2019-06-22 17:44 | NUR ---
GEAR KEEPER: pt.is rest now, agree for Bipap, O2sat over 94%, no SOB, more cooperative
--- NOTE | 2019-06-22 18:20 | NUR ---
MANAGER ENT: pt.began restless, confused, removed restraints, bipap mask, leads, pt.oriented for critical life risks with care refusing
--- NOTE | 2019-06-22 18:30 | NUR ---
OPHTHALMIC PATHOLOGIST: , RT are in room, evaluated pt., explained pt. risks, Dx, POC, risk to be intubated, wants to keep pt without sedation now, pt.said: doesnt want to be intubated, agree for Bipap mask now, restraints are off now, continue monitoring , Afib HR 45-60, SBP over 100
--- NOTE | 2019-06-22 19:30 | NUR ---
POLITICAL ANALYST PT ADMITTED W/RESP DIST; A/O x2; PT NOTED REMOVING LEADS AND BIPAP. EDUCATED PT ON THE NEED TO KEEP BIPAP ON AND KEEP LEADS ON. AFIB ON MONITOR. BIPA / 20 30%. TK MIDLINE W/NS @ TKO.
--- NOTE | 2019-06-22 19:52 | NUR ---
INDUSTRIAL SEAMSTRESS NON ADMIT STK MEDS FOR PT SAFETY.
--- NOTE | 2019-06-22 20:00 | NUR ---
SENIOR WIND ENERGY CONSULTANT PT REMOVED BIPAP AND LEADS. PT NOTED WITH AGGRESSIVE BEHAVIOR. PT COMBATIVE TOWARDS STAFF. BSWR PLACED AT THIS TIME. CONTINUE TO MONITOR.
--- NOTE | 2019-06-22 20:30 | NUR ---
CASE WORK AIDE PT NOT FOLLOWING COMMANDS. DISPLAYING COMBATIVE/AGGRESSIVE BEHAVIOR. UNABLE TO GIVE MEDS AT THIS TIME.
--- NOTE | 2019-06-22 21:00 | NUR ---
LUBRICATING SPECIALIST PT CONTINUES TO HAVE AGGRESSIVE BEHAVIOR. VERBALLY THREATENING STAFF. COMBATIVE DURING ADLs. CONTINUE TO MONITOR.
--- NOTE | 2019-06-22 23:00 | NUR ---
SHEETMETAL WORKER PT SLEEPING CONTINUE TO MONITOR.
[2019-06-23] VITALS (26 sets, daily range): BP systolic 89–168; BP diastolic 29–105
--- NOTE | 2019-06-23 01:43 | NUR ---
LOG PREPARER PT REMOVED BIPAP AND LEADS DESPITE HAVING BSWR IN PLACE. REEDUCATED PT ON THE NEED FOR MEDICAL EQUIPMENT; PT NOT READILY ACCEPTING EDUCATION. PT AGGRESSIVE; KICKING LEGS TOWARDS STAFF AND VERBALLY THREATENING STAFF. REAPPLIED RESTRAINTS AND PLACED PT BACK ON BIPAP. CONTINUE TO MONITOR.
[2019-06-23 04:51] LABS: BASOPHILS % (AUTO) 0.6 % (0.0-2.0); EOSINOPHILS % (AUTO) 1.7 % (0.0-6.0); HEMATOCRIT 34 % (33-45); HEMOGLOBIN 11.2 g/dL (11.5-14.8); LYMPHOCYTES # (AUTO) 0.7 /CMM (0.8-4.8); LYMPHOCYTES % (AUTO) 9.7 % (20.0-44.0); MEAN CORPUSCULAR HGB CONC 33 g/dl (31.0-36.0); MEAN CORPUSCULAR VOLUME 97 fL (82-100); MONOCYTES # (AUTO) 0.7 /CMM (0.1-1.30); MONOCYTES % (AUTO) 9.7 % (2.0-12.0); NEUTROPHILS # (AUTO) 5.3 /CMM (1.8-8.9); NEUTROPHILS % (AUTO) 78.3 % (43.0-81.0); PLATELET COUNT (AUTO) 112 /CMM (150-450); RED BLOOD CELL COUNT(AUTO) 3.53 MIL/uL (4.0-5.2); WHITE BLOOD COUNT (AUTO) 6.7 K/uL (4.3-11.0)
[2019-06-23] MEDS: PIPERACILLIN /TAZOBACTAM 3.375 G in IV D5W 100 ML IV SCH ×3 (05:02→21:36)
[2019-06-23 05:33] LABS: CREATININE 0.7 mg/dL (0.6-1.3); MAGNESIUM 1.8 mg/dL (1.8-2.4); PHOSPHORUS 2.2 mg/dL (2.5-4.9)
[2019-06-23] MEDS: DABIGATRAN ETEXILATE MESYLATE 150 MG CAPSULE PO SCH ×2 (08:44→16:55)
[2019-06-23] MEDS: LACTOBACILLUS RHAMNOSUS GG 1 EACH CAP.SPRINK PO SCH ×2 (08:45→16:54)
[2019-06-23] MEDS: DOXYCYCLINE HYCLATE (100 MG) 100 MG TABLET PO SCH ×2 (08:45→21:37)
[2019-06-23] MEDS: MUPIROCIN OINT 2% 22 GM TUBE TP SCH ×2 (08:45→21:37)
[2019-06-23] MEDS: CLOTRIMAZOLE 1% 15 GM TUBE TP SCH ×2 (08:46→16:57)
[2019-06-23] MEDS: IPRATROPIUM NEB FS 0.5 MG/2.5 ML AMPUL.NEB NEB PRN (09:21)
[2019-06-23] MEDS: ALBUTEROL FS 2.5 MG/0.5 ML VIAL.NEB NEB PRN (09:22)
[2019-06-23 10:03] LABS: ABG BASE EXCESS 7.2 mmol/L; ABG PCO2 68.8 mmHg (35.0-45.0); ABG PH 7.329 (7.350-7.450); ABG PO2 95.7 mmHg (75.0-100.0); AaDO2 81.2 mmHg; COHb 1.7 % (0.5-1.5); MetHb 0.6 % (0.0-1.5); O2Hb 94.8 % (94.0-97.0); SITE, ABG Right Radial; VENT MODE, BG N/C
[2019-06-23] MEDS ORDERED: K PHOS NEUTRAL 250 MG TABLET PO ONE (11:00)
[2019-06-24] VITALS (18 sets, daily range): BP systolic 118–148; BP diastolic 41–71
--- NOTE | 2019-06-24 02:06 | NUR ---
RN PT RECEIVED FROM AM SHIFT,CONTROLLED AFIB ON MONITOR. NO SOB NOTED, PT ON 3 L O2 VIA NC, TK MIDLINE W/NS @ TKO. BILATERAL SORT WRIST RESTRAINTS ON , PT REPOSITIONED , CALL LIGHT WITHIN REACH. WILL CONTINUE TO MONITOR.
[2019-06-24] MEDS: PIPERACILLIN /TAZOBACTAM 3.375 G in IV D5W 100 ML IV SCH ×3 (04:39→21:07)
[2019-06-24 04:43] LABS: BASOPHILS % (AUTO) 0.6 % (0.0-2.0); EOSINOPHILS % (AUTO) 2.2 % (0.0-6.0); HEMATOCRIT 36 % (33-45); HEMOGLOBIN 11.7 g/dL (11.5-14.8); LYMPHOCYTES # (AUTO) 0.6 /CMM (0.8-4.8); LYMPHOCYTES % (AUTO) 9.9 % (20.0-44.0); MEAN CORPUSCULAR HGB CONC 33 g/dl (31.0-36.0); MEAN CORPUSCULAR VOLUME 97 fL (82-100); MONOCYTES # (AUTO) 0.5 /CMM (0.1-1.30); MONOCYTES % (AUTO) 8.5 % (2.0-12.0); NEUTROPHILS # (AUTO) 4.9 /CMM (1.8-8.9); NEUTROPHILS % (AUTO) 78.8 % (43.0-81.0); PLATELET COUNT (AUTO) 115 /CMM (150-450); RED BLOOD CELL COUNT(AUTO) 3.66 MIL/uL (4.0-5.2); WHITE BLOOD COUNT (AUTO) 6.2 K/uL (4.3-11.0)
[2019-06-24 04:52] LABS: CALCIUM, SERUM 8.1 mg/dL (8.5-10.1); CREATININE 0.7 mg/dL (0.6-1.3); MAGNESIUM 1.7 mg/dL (1.8-2.4); POTASSIUM 3.3 mmol/L (3.5-5.1)
--- NOTE | 2019-06-24 06:00 | NUR ---
RN BIPAP OFF, PT PLACE ON NC 3L O2 BY RT LOKESH, PT TOLERATING NC WELL, O2 SAT 100%
--- NOTE | 2019-06-24 07:58 | NUR ---
ICU/RN INITIAL NOTES,AM RECEIVED BEDSIDE REPORT FROM NIGHT RN. PT ALERT, AWAKE, RESTING IN BED. PT CONFUSED. PT CONTROLLED A.FIB ON TELE. VSS. PT ON NASAL CANULA, NO RESPIRATORY DISTRESS NOTED. ALL NEEDS WILL BE ATTENDED TO, SAFETY MEASURES TAKEN, BED IN LOW POSITION, SIDE RAILS UP, CALL LIGHT WITHIN REACH. RIGHT UPPER ARM MIDLINE PATENT AND INTACT, TKO INFUSING. WAS AT BEDSIDE. ASSESSMENT DONE, RECEIVED ORDERS TO REPLACE MAGNESIUM AND POTASSIUM. WILL FOLLOW THROUGH.
[2019-06-24] MEDS ORDERED: POTASSIUM CHLORIDE 20 MEQ TAB.PRT.SR PO ONE (08:00)
[2019-06-24] MEDS ORDERED: MGSO4/D5W 100 ML IV SCH (08:00)
[2019-06-24] MEDS ORDERED: Magnesium 1GM/D5W 100ML PREMIX PIGGYBACK IV ONE (08:00)
[2019-06-24] MEDS: DOXYCYCLINE HYCLATE (100 MG) 100 MG TABLET PO SCH ×2 (08:25→21:07)
[2019-06-24] MEDS: LACTOBACILLUS RHAMNOSUS GG 1 EACH CAP.SPRINK PO SCH ×2 (08:25→16:25)
[2019-06-24] MEDS: POTASSIUM CHLORIDE 20 MEQ TAB.PRT.SR PO SCH ×2 (08:26→10:03)
[2019-06-24] MEDS: DABIGATRAN ETEXILATE MESYLATE 150 MG CAPSULE PO SCH ×2 (08:35→16:26)
[2019-06-24] MEDS: MUPIROCIN OINT 2% 22 GM TUBE TP SCH ×2 (08:36→21:20)
[2019-06-24] MEDS: CLOTRIMAZOLE 1% 15 GM TUBE TP SCH ×2 (08:36→16:30)
[2019-06-24] MEDS: FUROSEMIDE 100 MG/10 ML VIAL IV SCH ×3 (08:43→16:26)
--- NOTE | 2019-06-24 14:45 | NUR ---
ICU/RN: BEDSIDE REPORT ENDORSED TO NICOLE RN. PT TRANSFERRED TO [facility]2. PT TRANSFERRED WITH ACLS GUIDELINES. ON 3LITERS NASAL CANULA, NO DISTRESS NOTED. A.FIB ON TELE, CONTROLLED, HR IN 40S. MD AWARE. ALL NEEDS ATTENDED TO, SAFETY MEASURES TAKEN, BED IN LOW POSITION, SIDE RAILS UP, CALL LIGHT WITHIN REACH.
--- NOTE | 2019-06-24 14:50 | NUR ---
NETTING INSPECTOR NOTES RECEIVED BEDSIDE REPORT FROM JORJE BETANCOURT. TRANSFER FROM ICU. PT ALERT, AWAKE, RESTING IN BED. PT CONFUSED. PT CONTROLLED A.FIB ON TELE. VSS. PT ON NASAL CANULA, NO RESPIRATORY DISTRESS NOTED. ALL NEEDS WILL BE ATTENDED TO, SAFETY MEASURES TAKEN, BED IN LOW POSITION, SIDE RAILS UP, CALL LIGHT WITHIN REACH. RIGHT UPPER ARM MIDLINE PATENT AND INTACT, TKO INFUSING. ALL NEEDS ANTICIPATED. CALL LIGHT WITHIN REACH. BED LOW LOCKED, WILL CONT TO MONITOR.
--- NOTE | 2019-06-24 18:45 | NUR ---
COMPLIANCE ASSOCIATE NOTES PATIENT RESTING COMFORTABLY. NOT IN ANY DISTRESS. VSS. SAFETY MEASURES IN PLACE. CALL LIGHT WITHIN REACH. ALL NEEDS MET. NO OTHER SIGNIFICANT CHANGE IN CONDITION. WILL ENDORSE TO NEXT SHIFT FOR ARIAN.
--- NOTE | 2019-06-24 19:40 | NUR ---
RN NOTES, RECEIVED PATIENT AWAKE A/O TO SELF, PATIENT BREATHING EVEN AND UNLABORED, NO SOB/ACUTE DISTRESS NOTED, ON NASAL CANULA AT 3LPM WITH OPTIMAL O2 SAT AT THIS TIME, NO S/S OR C/O PAIN OR DISCOMFORT, AFIB CONTROLLED ON THE TELE MONITOR, WITH HR IN THE 60S, RIGHT UPPER ARM MIDLINE PATENT AND INTACT, NO ABNORMALITY NOTED AT SITE, ALL SAFETY MEASURES IN PLACED, BED IN LOW POSITION, SIDE RAILS OF BED UP, BED BATH NEED TO BE PROVIDED AT THIS TIME, PATIENT WITH BIG BOWEL MOVEMENT AT THIS TIME, CALL LIGHT WITHIN REACH, ALL NEEDS PROVIDED, BED LOCKED AND LOW POSITION, WILL CONTINUE TO MONITOR PATIENT CLOSELY.
--- NOTE | 2019-06-24 23:00 | NUR ---
RN NOTES, PATIENT PLACED IN NOCTURNAL BIPAP BY RT AT THIS TIME, TOLERATED WELL, WILL CONTINUE TO MONITOR CLOSELY.
[2019-06-25] VITALS: BP 110/42
[2019-06-25 04:00] VITALS: BP 110/46
[2019-06-25] MEDS: PIPERACILLIN /TAZOBACTAM 3.375 G in IV D5W 100 ML IV SCH ×3 (04:54→20:22)
--- NOTE | 2019-06-25 06:00 | NUR ---
RN NOTES, PATIENT OUT OF BIPAP AT THIS TIME, AND PLACED IN O2 3LPM VIA NC, WITH STABLE VITAL SIGNS AND O2 SATURATION LEVEL.
--- NOTE | 2019-06-25 06:10 | NUR ---
RN NOTES, PATIENT FIGHTING WHILE PROVIDING CARE, AND SCRATCHING PERSONNEL WHO IS PROVIDING CARE, ALL SAFETY MEASURES TAKEN, REMOVED ONE RESTRAIN AT ONCE, STILL PATIENT ATTEMPTING TO SCRATCH AND HIT, REDIRECTION OF BEHAVIOR PROVIDED.
--- NOTE | 2019-06-25 06:15 | NUR ---
RN NOTES, PATIENT NOTED WITH AN EPISODE OF DESATURATION IN THE LOWS 70S, TITRATED O2 UP AND O2 SATURATION LEVEL INCREASED TO ABOVE 95%, AFTER STABILIZED O2 SAT LEVEL, O2 TITRATED DOWN TO 3LPM VIA NC, WILL CONTINUE TO MONITOR CLOSELY.
[2019-06-25 06:52] LABS: ALBUMIN 2.6 g/dL (3.4-5.0); BILIRUBIN,TOTAL 1.2 mg/dL (0.2-1.0); CREATININE 0.9 mg/dL (0.6-1.3); MAGNESIUM 1.5 mg/dL (1.8-2.4); PHOSPHORUS 2.3 mg/dL (2.5-4.9); POTASSIUM 3.2 mmol/L (3.5-5.1); TOTAL PROTEIN, SERUM 6.8 g/dL (6.4-8.2)
--- NOTE | 2019-06-25 06:53 | NUR ---
RN NOTES, PATIENT BREATHING EVEN AND UNLABORED, WITH OPTIMAL O2 SAT LEVEL 99% AT THIS TIME, NO SOB/ACUTE DISTRESS NOTED, ON NASAL CANULA AT 3LPM WITH NO S/S OR C/O PAIN OR DISCOMFORT, CONTINUE AFIB CONTROLLED ON THE TELE MONITOR, WITH HR IN THE 40-50S AT THIS TIME, WILL ENDORSE CONTINUITY OF CARE TO ONCOMING NURSE. CALL LIGHT WITHIN REACH, ALL NEEDS PROVIDED, KEPT DRY AND CLEAN, BED LOCKED AND LOW POSITION, WILL CONTINUE TO MONITOR PATIENT CLOSELY.
[2019-06-25 07:15] LABS: BASOPHILS % (AUTO) 0.5 % (0.0-2.0); EOSINOPHILS % (AUTO) 3.4 % (0.0-6.0); HEMATOCRIT 36 % (33-45); HEMOGLOBIN 11.8 g/dL (11.5-14.8); LYMPHOCYTES # (AUTO) 0.9 /CMM (0.8-4.8); LYMPHOCYTES % (AUTO) 13.5 % (20.0-44.0); MEAN CORPUSCULAR HGB CONC 33 g/dl (31.0-36.0); MEAN CORPUSCULAR VOLUME 96 fL (82-100); MONOCYTES # (AUTO) 0.7 /CMM (0.1-1.30); MONOCYTES % (AUTO) 10.4 % (2.0-12.0); NEUTROPHILS # (AUTO) 4.7 /CMM (1.8-8.9); NEUTROPHILS % (AUTO) 72.2 % (43.0-81.0); PLATELET COUNT (AUTO) 134 /CMM (150-450); RED BLOOD CELL COUNT(AUTO) 3.71 MIL/uL (4.0-5.2); WHITE BLOOD COUNT (AUTO) 6.5 K/uL (4.3-11.0)
--- NOTE | 2019-06-25 07:45 | NUR ---
RN NOTE: RECEIVED PATIENT IN BED, ASLEEP, BUT AROUSABLE WITH TACTILE STIMULI AND VERBAL CUES. ON MEDICAL SUPPLY TECHNICIAN NOTED WITH CONTROLLED ATRIAL FIBRILLATION HR= 40. HOB ELEVATED. BED ALARMED AND LOCKED AT ALL TIMES. BED ON LOWEST POSITION. ON CONTACT ISOLATION FOR MRSA NARES AND OBSERVED AT ALL TIMES. PATIENT WAS RECEIVED WITH (B) SOFT WRIST RESTRAINTS AND WAS NOTED CALM AND QUIET AT THIS TIME. AFEBRILE. SKIN WARM TO TOUCH. (R) UA MIDLINE NOTED PATENT AND INTACT. CALL LIGHT WITHIN REACH. NEEDS ANTICIPATED.
[2019-06-25 08:00] VITALS: BP 142/38
--- NOTE | 2019-06-25 08:45 | NUR ---
RN NOTE: DR. YOUNG PRESENT AT THE BEDSIDE AND REPORTED TO HIM THE CO2 OF 46. PATIENT WAS ON O2 2L/MIN VIA NC SATURATING 99% AND WAS NOT ON ANY FORM OF RESPIRATORY DISTRESS. WITH NO NEW ORDER.
[2019-06-25] MEDS: DOXYCYCLINE HYCLATE (100 MG) 100 MG TABLET PO SCH ×2 (09:11→20:21)
[2019-06-25] MEDS: LACTOBACILLUS RHAMNOSUS GG 1 EACH CAP.SPRINK PO SCH ×2 (09:11→17:04)
[2019-06-25] MEDS: CLOTRIMAZOLE 1% 15 GM TUBE TP SCH ×2 (09:15→17:05)
[2019-06-25] MEDS: MUPIROCIN OINT 2% 22 GM TUBE TP SCH ×2 (09:15→20:22)
[2019-06-25] MEDS: DABIGATRAN ETEXILATE MESYLATE 150 MG CAPSULE PO SCH ×2 (09:17→17:09)
[2019-06-25] MEDS ORDERED: POTASSIUM CHLORIDE 20 MEQ TAB.PRT.SR PO SCH (10:00)
[2019-06-25] MEDS: Magnesium 1GM/D5W 100ML PREMIX 100 ML IV SCH ×2 (10:29→11:30)
[2019-06-25] MEDS ORDERED: acetaZOLAMIDE SODIUM 500 MG/VIAL VIAL IV ONE (10:30)
[2019-06-25] MEDS ORDERED: K PHOS NEUTRAL 250 MG TABLET PO ONE (11:00)
[2019-06-25] MEDS: NEUTRA PHOS 1 POWD.PACKET PO SCH ×2 (11:04→18:36)
[2019-06-25 12:00] VITALS: BP_SYST 124; BP_DIAS 27; BP_DIAS 37
[2019-06-25 16:00] VITALS: BP 124/30
--- NOTE | 2019-06-25 19:22 | NUR ---
RN NOTE: BEDSIDE REPORT WAS GIVEN TO PM SHIFT NURSE FOR CONTINUITY OF CARE. PATIENT REMAINED ON CONTACT ISOLATION FOR MRSA NARES. PROPER HANDWASHING WAS OBSERVED. BED ALARMED AND LOCKED AT ALL TIMES.
[2019-06-25 20:00] VITALS: BP 135/26
--- NOTE | 2019-06-25 21:00 | NUR ---
RT NOTES PT REFUSED NOC BIPAP. EDUACTED ON BENNIFITS OF BIPAP BUT STILL REFUSED AFTER 3X ATTEPT. NO DISTRESS NOTED ALL SHIFT. PT SATTING 98% ON CANNULA. WILL CONT TO MONITOR.
[2019-06-26] VITALS: BP 112/27
[2019-06-26 04:00] VITALS: BP 103/24
[2019-06-26] MEDS: PIPERACILLIN /TAZOBACTAM 3.375 G in IV D5W 100 ML IV SCH (05:14)
[2019-06-26 06:47] LABS: CALCIUM, SERUM 7.8 mg/dL (8.5-10.1); CREATININE 0.8 mg/dL (0.6-1.3); PHOSPHORUS 4.5 mg/dL (2.5-4.9); POTASSIUM 3.1 mmol/L (3.5-5.1)
[2019-06-26 08:00] VITALS: BP 121/41
--- NOTE | 2019-06-26 08:30 | NUR ---
RN NOTE: BEDSIDE REPORT WAS GIVEN TO JORJE PAULSON FOR CONTINUITY OF CARE.
[2019-06-26] MEDS: DOXYCYCLINE HYCLATE (100 MG) 100 MG TABLET PO SCH (09:35)
[2019-06-26] MEDS: LACTOBACILLUS RHAMNOSUS GG 1 EACH CAP.SPRINK PO SCH ×2 (09:35→10:56)
[2019-06-26] MEDS: POTASSIUM CHLORIDE 20 MEQ TAB.PRT.SR PO SCH ×3 (09:35→11:00)
[2019-06-26 09:36] LABS: ABG BASE EXCESS 14.8 mmol/L; ABG OXYGEN SATURATION 95.2 % (92.0-98.5); ABG PH 7.345 (7.350-7.450); ABG PO2 76.7 mmHg (75.0-100.0); AaDO2 48.2 mmHg; COHb 1.3 % (0.5-1.5); MetHb 0.7 % (0.0-1.5); O2Hb 93.3 % (94.0-97.0); SITE, ABG Right Radial; VENT MODE, BG Nasal Cannula
[2019-06-26] MEDS: DABIGATRAN ETEXILATE MESYLATE 150 MG CAPSULE PO SCH (09:39)
[2019-06-26] MEDS: MUPIROCIN OINT 2% 22 GM TUBE TP SCH (10:58)
[2019-06-26] MEDS: CLOTRIMAZOLE 1% 15 GM TUBE TP SCH (11:00)
--- NOTE | 2019-06-26 11:07 | NUR ---
MS JORJE KAUR AT 0900. Addendum: 06/26/19 at 1108 by LORENE JONES RN MED WAS WAISTED
[2019-06-26] MEDS ORDERED: POTASSIUM CHLORIDE 20 MEQ TAB.PRT.SR PO ONE (12:30)
[2019-06-26] MEDS ORDERED: DOXY100T2 PO (12:33)
[2019-06-26] MEDS ORDERED: DABI150C PO (12:33)
[2019-06-26] MEDS ORDERED: ALBU2.5V13 NEB (12:33)
[2019-06-26] MEDS ORDERED: IPRA0.2S9 NEB (12:33)
--- NOTE | 2019-06-26 12:44 | NUR ---
MS RN NOTES PT REFUSED POTASSIUM MED FOR 1100 AND MEDICATION RETURNED TO THE [facility].
== END 2019-06-26 17:05 | DRG 189 ==
LOC: ER 10:52 → TELE 13:19 → MED 15:23 → ICU 06-18 13:08 → TELE1 06-20 17:43 → ICU 06-22 09:06 → TELE1 06-24 14:23 → MEDSG1 06-26 08:56
PROVIDERS: ADMIT Internal Medicine; ATTEND Nurse Practitioner Acute Care
PROC: 05HB33Z Insertion of Infusion Device into Right Basilic Vein, Percutaneous Approach (ICD-10-PCS; 2019-06-21)
PROC: 5A09457 Assistance with Respiratory Ventilation, 24-96 Consecutive Hours, Continuous Positive Airway Pressure (ICD-10-PCS; principal; 2019-06-22)
DX: J96.22 Acute and chronic respiratory failure with hypercapnia (principal); G93.41 Metabolic encephalopathy; E87.0 Hyperosmolality and hypernatremia; N39.0 Urinary tract infection, site not specified; E44.0 Moderate protein-calorie malnutrition; E44.1 Mild protein-calorie malnutrition; J98.11 Atelectasis; E87.3 Alkalosis; E87.2 Acidosis; J96.21 Acute and chronic respiratory failure with hypoxia; I48.2 Chronic atrial fibrillation; M17.12 Unilateral primary osteoarthritis, left knee; L30.4 Erythema intertrigo; Z86.72 Personal history of thrombophlebitis; Z79.02 Long term (current) use of antithrombotics/antiplatelets; Z99.3 Dependence on wheelchair; Z79.899 Other long term (current) drug therapy; I87.8 Other specified disorders of veins; L98.9 Disorder of the skin and subcutaneous tissue, unspecified; D69.6 Thrombocytopenia, unspecified; M19.90 Unspecified osteoarthritis, unspecified site; E87.6 Hypokalemia; G47.33 Obstructive sleep apnea (adult) (pediatric); R62.7 Adult failure to thrive; L89.890 Pressure ulcer of other site, unstageable; D64.9 Anemia, unspecified; Z22.322 Carrier or suspected carrier of Methicillin resistant Staphylococcus aureus; B96.1 Klebsiella pneumoniae [K. pneumoniae] as the cause of diseases classified elsewhere; R00.1 Bradycardia, unspecified; E55.9 Vitamin D deficiency, unspecified; I45.10 Unspecified right bundle-branch block; I70.0 Atherosclerosis of aorta; I50.9 Heart failure, unspecified; I27.20 Pulmonary hypertension, unspecified
CPT/HCPCS: 36415; 36600; 70450-TC; 71045-TC; 80048-TC; 80053-TC; 80076-TC; 81000-TC; 82803-TC; 83605-TC; 83735-TC; 84100-TC; 84439-TC; 84443-TC; 84484-TC; 85025-TC; 87040-TC; 87081-TC; 87086-TC; 87186-TC; 93307-TC; 93970-TC; 94660; 94799-TC; 97112-TC; 97530-TC; 99082-TC; G0378; G0480; J0696; J1120; J1940; J2543; J3370; J3475; J7030; J7040; J7050; J7060

== ENCOUNTER 2019-07-08 18:16 | Inpatient (IN) | payer MEDICARE ==
[~2019-07-08] VITALS: Ht 165.1 cm; Wt 64.9 kg
[~2019-07-08 18:16] MED LIST changes: +ALBU2.5V13 NEB; -CLOT15CR35 TP; +DOXY100T2 PO; +IPRA0.2S9 NEB; -LEVO500T75 PO; -MUPI22OI7; +POTASSIUM CHLORIDE
--- NOTE | 2019-07-08 18:16 | NUR ---
CHAI, FROM [facility], SOB 86% ON 2LPM NC, TO ER BED 11, HOOKED TO MONITOR, CHANGED TO GOWN, PROVIDED W WARM BLANKET. AWAITING MD DURAN. PATIENT ON NON-REBREATHER MASK AT 15LPM. O2 SAT AT 98%.
[2019-07-08] MEDS ORDERED: FEE PK DOSING 1 MIN EA MC ONE (18:23)
--- NOTE | 2019-07-08 18:25 | NUR ---
DR MARIEE AT BEDSIDE
[2019-07-08 18:44] LABS: BASOPHILS # (AUTO) 0.1 /CMM (0.0-0.2); BASOPHILS % (AUTO) 0.4 % (0.0-2.0); EOSINOPHILS % (AUTO) 0.6 % (0.0-6.0); HEMATOCRIT 35 % (33-45); HEMOGLOBIN 10.6 g/dL (11.5-14.8); LYMPHOCYTES # (AUTO) 0.9 /CMM (0.8-4.8); LYMPHOCYTES % (AUTO) 6.4 % (20.0-44.0); MEAN CORPUSCULAR HGB CONC 31 g/dl (31.0-36.0); MEAN CORPUSCULAR VOLUME 102 fL (82-100); MONOCYTES # (AUTO) 0.9 /CMM (0.1-1.30); MONOCYTES % (AUTO) 6.2 % (2.0-12.0); NEUTROPHILS # (AUTO) 12.4 /CMM (1.8-8.9); NEUTROPHILS % (AUTO) 86.4 % (43.0-81.0); PLATELET COUNT (AUTO) 168 /CMM (150-450); RED BLOOD CELL COUNT(AUTO) 3.38 MIL/uL (4.0-5.2); WHITE BLOOD COUNT (AUTO) 14.3 K/uL (4.3-11.0)
[2019-07-08] MEDS ORDERED: BISA10SU61 RC (18:45)
[2019-07-08] MEDS ORDERED: NA P133E RC (18:45)
[2019-07-08] MEDS ORDERED: SODIUM CHLORIDE IV (18:45)
[2019-07-08] MEDS ORDERED: PROT946L PO (18:45)
[2019-07-08] MEDS ORDERED: MAGN400O6 PO (18:45)
--- NOTE | 2019-07-08 18:59 | NUR ---
URINE SAMPLE SENT TO LAB
[2019-07-08 19:00] LABS: CREATININE 1.1 mg/dL (0.6-1.3); POTASSIUM 4.5 mmol/L (3.5-5.1)
[2019-07-08] MEDS ORDERED: VANCOMYCIN 1 GM in IV D5W 250 ML IV ONE (19:00)
[2019-07-08] MEDS ORDERED: PIPERACILLIN /TAZOBACTAM 3.375 G in IV D5W 50 ML IV ONE (19:00)
[2019-07-08] MEDS ORDERED: PIPERACILLIN /TAZOBACTAM 3.375 G VIAL IV ONE (19:12)
[2019-07-08] MEDS ORDERED: VANCOMYCIN 1 GM VIAL ONE (19:12)
[2019-07-08 19:13] LABS: ALBUMIN 2.4 g/dL (3.4-5.0); BILIRUBIN,DIRECT 0.4 mg/dL (0.0-0.2); BILIRUBIN,TOTAL 0.8 mg/dL (0.2-1.0); TOTAL PROTEIN, SERUM 6.1 g/dL (6.4-8.2)
--- NOTE | 2019-07-08 19:30 | NUR ---
REPORT GIVEN TO KRISTY RECINOS FOR ARIAN
[2019-07-08 19:38] LABS: APPEARANCE,URINE Slightly Cloudy (CLEAR); BILIRUBIN,URINE SMALL (NEGATIVE); BLOOD, URINE Small Ery/uL (NEGATIVE); COLOR,URINE Yellow (YELLOW); KETONES,URINE Negative (NEGATIVE); LEUKOCYTE ESTERASE ,URINE Negative (NEGATIVE); NITRITE, URINE Negative (NEGATIVE); PH,URINE 5.5 (5.0-8.0); PROTEIN,URINE 30 mg/dl (NEGATIVE); UGLUCOSE Negative (NEGATIVE); UROBILINOGEN,URINE 0.2 EU/dL (0.2)
[2019-07-08 20:05] LABS: BACTERIA,URINE Few /HPF (None Seen); SQUAMOUS EPITHELIAL CELL,UR Moderate /HPF (None Seen)
[2019-07-08 20:06] LABS: URINE AMORPHOUS URATE Many /HPF (None Seen)
--- NOTE | 2019-07-08 20:16 | NUR ---
MARINE - BAG FILLER [phone]
[2019-07-08] MEDS ORDERED: ALBUTEROL FS 2.5 MG/0.5 ML VIAL.NEB NEB PRN (20:30)
[2019-07-08] MEDS ORDERED: ACETAMINOPHEN 325 MG TABLET PO PRN (20:30)
[2019-07-08] MEDS ORDERED: MAG HYDROX/AL HYDROX/SIMETH 30 ML UDC PO PRN (20:30)
[2019-07-08] MEDS ORDERED: HYDROCODONE/APAP 5/325MG 1 EACH TABLET PO PRN (20:30)
[2019-07-08] MEDS ORDERED: ONDANSETRON HCL/PF 4 MG/2 ML VIAL IVP PRN (20:30)
[2019-07-08] MEDS ORDERED: Z GUARD REMEDY 2 OZ OINT TP PRN (20:30)
[2019-07-08] MEDS ORDERED: IPRATROPIUM NEB FS 0.5 MG/2.5 ML AMPUL.NEB NEB PRN (20:30)
[2019-07-08] MEDS ORDERED: VANCOMYCIN 1 GM in IV D5W 250 ML IV SCH (20:30)
[2019-07-08] MEDS ORDERED: ZOLPIDEM TARTRATE 5 MG TABLET PO PRN (20:30)
[2019-07-08] MEDS ORDERED: MAGNESIUM HYDROXIDE 30 ML UDC PO PRN (20:30)
--- NOTE | 2019-07-08 21:01 | NUR ---
REPORT GIVEN TO JORJE ART FOR ARIAN. PT TO 325
[2019-07-08 21:10] VITALS: BP 120/45
--- NOTE | 2019-07-08 21:10 | NUR ---
SUPERVISOR FELLING BUCKING ADMITTING NOTES RECEIVED PT FROM ER VIA GIL. PT A/O X1 WITH PERIODS OF CONFUSION. PT ON 10 VIA SIMPLE FACE MASK TOLERATING WELL SATING @98%. NO COMPLAINTS OF PAIN AT THIS TIME. PT WITH URA MIDLINE, PATENT AND INTACT. SKIN ASSESSMENT DONE WITH PICTURES TAKEN. SAFETY MEASURES IN PLACE WITH BED IN LOWEST LOCKED POSITION WITH SIDE RAILS UP X2. CALL LIGHT WITHIN REACH. WILL CONTINUE TO MONITOR.
--- NOTE | 2019-07-08 21:27 | NUR ---
PT TRANSPORTED TO UNIT ON [facility] WITH EMT AND RN AT BEDSIDE. NAD NOTED DURING TRANSPORT.
[2019-07-09] VITALS (15 sets, daily range): BP systolic 61–155; BP diastolic 19–95
[2019-07-09] MEDS: PIPERACILLIN /TAZOBACTAM 3.375 G in IV D5W 50 ML IV SCH ×2 (00:02→06:12)
[2019-07-09 06:40] LABS: BASOPHILS % (AUTO) 0.1 % (0.0-2.0); EOSINOPHILS % (AUTO) 0.4 % (0.0-6.0); HEMATOCRIT 37 % (33-45); HEMOGLOBIN 11.2 g/dL (11.5-14.8); LYMPHOCYTES % (AUTO) 7.3 % (20.0-44.0); MEAN CORPUSCULAR HGB CONC 31 g/dl (31.0-36.0); MEAN CORPUSCULAR VOLUME 103 fL (82-100); MONOCYTES # (AUTO) 0.9 /CMM (0.1-1.30); NEUTROPHILS # (AUTO) 11.1 /CMM (1.8-8.9); NEUTROPHILS % (AUTO) 85.2 % (43.0-81.0); PLATELET COUNT (AUTO) 148 /CMM (150-450); RED BLOOD CELL COUNT(AUTO) 3.55 MIL/uL (4.0-5.2)
[2019-07-09] MEDS: PANTOPRAZOLE 40 MG TABLET.DR PO SCH (07:30)
--- NOTE | 2019-07-09 07:40 | NUR ---
MS RN RECEIVED PATIENT ON BE, LETHARGIC, ON FACE MASK,SATURATING 98 PERCENT, BARELY AWAKE BY NAME, V/S WNL. DOES NOT LOOK GOOD, CHARGE NURSE AWARE, WILL LET DR. CORTEZ EVALUATE PATIENT.
--- NOTE | 2019-07-09 07:41 | NUR ---
REEL SYSTEM OPERATOR NOTES PT IN BED SLEEPING BUT EASILY AWOKEN VERBALLY OR BY TOUCH. PT A/O X1 WITH PERIODS OF CONFUSION. PT ON 8L VIA SIMPLE FACE MASK TOLERATING WELL SATING @97%. NO COMPLAINTS OF PAIN AT THIS TIME. PT WITH URA MIDLINE, PATENT AND INTACT. PT KEPT CLEAN, DRY, AND COMFORTABLE. PT TURNED Q2 HOURS THROUGHOUT SHIFT. SAFETY MEASURES IN PLACE WITH BED IN LOWEST LOCKED POSITION WITH SIDE RAILS UP X2. CALL LIGHT WITHIN REACH. WILL ENDORSE TO ONCOMING NURSE FOR ARIAN.
--- NOTE | 2019-07-09 08:10 | NUR ---
MS RN WAS SEEN BY DR. CORTEZ, ORDERED TO TRANSFER TO ICU,ALL NEEDS ATTENDED.
[2019-07-09 08:39] LABS: CALCIUM, SERUM 7.9 mg/dL (8.5-10.1); CREATININE 1.1 mg/dL (0.6-1.3); MAGNESIUM 2.3 mg/dL (1.8-2.4); PHOSPHORUS 5.3 mg/dL (2.5-4.9); POTASSIUM 4.8 mmol/L (3.5-5.1)
[2019-07-09 08:55] LABS: ABG BASE EXCESS 3.2 mmol/L; ABG PCO2 92.8 mmHg (35.0-45.0); ABG PO2 125.4 mmHg (75.0-100.0); AaDO2 148.8 mmHg; COHb 1.5 % (0.5-1.5); MetHb 0.6 % (0.0-1.5); O2Hb 95.9 % (94.0-97.0); SITE, ABG Right Brachial; VENT MODE, BG SIMPLE MASK
--- NOTE | 2019-07-09 08:55 | NUR ---
MS RN PATIENT TRANSFERRED TO ICU, REPORT GIVEN TO KEVIN.
[2019-07-09] MEDS: VANCOMYCIN HCL 0.75 GM in IV D5W 250 ML IV SCH ×2 (08:56→20:26)
[2019-07-09] MEDS ORDERED: DABIGATRAN ETEXILATE MESYLATE 150 MG CAPSULE PO SCH (09:00)
--- NOTE | 2019-07-09 09:05 | NUR ---
PHOTOGRAPHER HELPER TRANSFER NOTES RECEIVED PATIENT FROM 3W ACUTE RESPIRATORY DISTRESS. PATIENT TRANSFER VIA BED ACLS PROTOCOL ON 10 LTRS O2 PLACED ON BIPAP RT AT BEDSIDE. PATIENT A/O X1 PULLING AT TUBES. VITALS T 97.5 B/P 114/31 HR 44 RR 19 O2 100% ON BIPAP. SKIN WARM AND DRY EDEMATOUS. PHOTOS TAKEN AND PLACED IN CHART. 1 WET DIAPER . MASD NOTED TO SACRAL AREA. COVERED WITH MEPLIX WOUND CONSULT ORDERED. BILATERAL WRIST RESTRAINTS APPLIED FOR PULLING AT LINES AND TUBES. TK MIDLINE RUNNING VANCO AT THIS TIME AWAITING ORDERS ALBERT YOUNG MADE AWARE OF TRANSFER. FOLLOWED BY PULMONOLOGY. SAFETY AND ASPIRATION PRECAUTIONS N PLACE BED IN LOW LOCKED POSITION WILL CONT TO MONITOR ACCORDINGLY.
--- NOTE | 2019-07-09 09:19 | NUR ---
RT NOTE PT. PLACED ON NIPPV DUE TO DETERIORATING ABG RESULTS PH 7.18 PCO2 92 PO2 125 BI PAP SETTINGS BELOW PER DR. ODELL: IPAP 20, EPAP 5, RATE 12, FIO2 30% BREATH SOUNDS DIMINISHED BILATERAL AMBU BAG AT BEDSIDE Addendum: 07/09/19 at 0923 by HARRISON CRAWFORD RT Amended: Links added.
--- NOTE | 2019-07-09 10:00 | NUR ---
ORDER FOR ABG @ 0637
[2019-07-09 10:20] LABS: THYROID STIMULATING HORMONE 2.412 uIU/mL (0.358-3.74)
[2019-07-09] MEDS ORDERED: BUMETANIDE INJ 6 MG in IV NS 0.9% 36 ML IV ONE (11:00)
[2019-07-09] MEDS: methylPREDNISolone SOD SUCC 40 MG/ML VIAL IV SCH ×2 (11:05→17:35)
[2019-07-09 11:19] LABS: ABG BASE EXCESS 5.3 mmol/L; ABG OXYGEN SATURATION 95.9 % (92.0-98.5); ABG PCO2 56.5 mmHg (35.0-45.0); ABG PH 7.368 (7.350-7.450); ABG PO2 76.6 mmHg (75.0-100.0); AaDO2 70.9 mmHg; COHb 1.8 % (0.5-1.5); MetHb 0.6 % (0.0-1.5); O2Hb 93.6 % (94.0-97.0); SITE, ABG Right Brachial; VENT MODE, BG BIPAP 20/5 R12
[2019-07-09] MEDS: IPRATROPIUM NEB FS 0.5 MG/2.5 ML AMPUL.NEB NEB SCH ×4 (11:29→23:21)
[2019-07-09] MEDS: ALBUTEROL HALF STRENGTH 1.25 MG/3 ML VIAL.NEB NEB SCH ×4 (11:29→23:21)
--- NOTE | 2019-07-09 11:33 | NUR ---
ABGS REPORTED TO HECTOR AND PELEG NO CHANGES AT THIS TIME.
[2019-07-09] MEDS: PIPERACILLIN /TAZOBACTAM 3.375 G in IV D5W 100 ML IV SCH ×2 (11:35→18:17)
--- NOTE | 2019-07-09 11:41 | NUR ---
WOUND CARE CONSULT: PT FOLLOWED BY PLASTIC SURGERY TEAM FOR SKIN ISSUES. DEFER TO SURGICAL TEAM FOR WOUND TREATMENT PLAN. DISCUSSED PRESSURE ULCER PREVENTION/SKIN PROTECTION WITH NURSING STAFF. PT ON FIRST STEP CIRRUS LOW AIRLOSS MATTRESS. PT COMBATIVE AT TIMES PER NURSING STAFF. WILL SEE PRN.
--- NOTE | 2019-07-09 13:00 | NUR ---
UNABLE TO OBTAIN 2ND IV ACCESS ORDER OBTAINED FOR 2ND MIDLINE
--- NOTE | 2019-07-09 16:07 | NUR ---
2ND LINE ACCESS WHIT MIDLINE # 18 GAUGE
--- NOTE | 2019-07-09 16:08 | NUR ---
VERIFIED WITH ALBERT YOUNG THAT PATIENT SKIP DOSE OF ZOSYN AND CONT WITH NEXT DOSE @ 1800
--- NOTE | 2019-07-09 17:17 | NUR ---
MUKHERJEE CATH 16 FR INSERTED FOR STRICT I&O PATIENT ON BUMEX IV
--- NOTE | 2019-07-09 19:00 | NUR ---
RECEIVED PT IN NO ACUTE DISTRESS IN BED. PATIENT IS A/O X 1 WITH CONFUSION. PATIENT IS ON O2 VIA BIPAP WITH SETTING AT 20/5 RATE 12 FIO2 30%. PATIENT TOLERATING WELL. PATIENT ON TELEMETRY WITH AFIB ON THE MONITOR. PATIENT HAS MUKHERJEE CATHETER THAT IS CLEAN DRY INTACT AND PATENT WITH CLEAR YELLOW URINE DRAINING. PATIENT HAS RIGHT UPPER MIDLINE THAT IS CLEAN DRY INTACT AND PATENT WITH NS AT TKO. PATIENT HAS LEFT UPPER MIDLINE THAT IS CLEAN DRY INTACT AND PATENT WITH SALINE LOCK. BED IN LOW LOCK POSITION WITH RIALS UP X 2. CALL LIGHT WITHIN REACH AND ALL SAFETY MEASURES ENSURED AND CARRIED OUT. WILL CONTINUE TO MONITOR PATIENT.
[2019-07-09] MEDS: CLOTRIMAZOLE 1% 15 GM TUBE TP SCH (19:16)
--- NOTE | 2019-07-09 19:26 | NUR ---
SILO TENDER NOTES PATIENT REMAINED RESTLESS THROUGHOUT SHIFT A/O X1 CONFUSED ON BIPAP TOLERATING SETTINGS ORDERED. NO ACUTE PAIN NOTED. SINUS ZULEIKA WITH AFIB ON MONITOR MD AWARE. BUMEX GIVEN X1 IV. MUKHERJEE CATH DRAINING CLEAR YELLOW URINE. TK MIDLINE # 18 WHIT MIDLINE # 18. BILATERAL WRIST RESTRAINTS FOR PULLING AT LINES CHECKED FOR CIRCULATION NPO STATUS. ALL MEDS GIVEN ORDERED. SAFETY AND ASPIRATION PRECAUTIONS IN PLACE BED IN LOW LOCKED POSITION WILL ENDORSE TO NOC
--- NOTE | 2019-07-09 19:30 | NUR ---
PATIENT TAKEN OFF BIPAP AND PLACED ON NASAL CANNULA AT 3LPM AND TOLERATING WELL WITH O2 SAT AT 98%. WILL CONTINUE TO MONITOR PATIENT.
[2019-07-10] VITALS (20 sets, daily range): BP systolic 90–157; BP diastolic 33–122
[2019-07-10] MEDS: PIPERACILLIN /TAZOBACTAM 3.375 G in IV D5W 100 ML IV SCH ×3 (02:03→17:12)
[2019-07-10] MEDS: ALBUTEROL HALF STRENGTH 1.25 MG/3 ML VIAL.NEB NEB SCH ×6 (03:09→23:11)
[2019-07-10] MEDS: IPRATROPIUM NEB FS 0.5 MG/2.5 ML AMPUL.NEB NEB SCH ×6 (03:09→23:11)
[2019-07-10 04:25] LABS: BASOPHILS % (AUTO) 0.2 % (0.0-2.0); HEMATOCRIT 32 % (33-45); HEMOGLOBIN 10.6 g/dL (11.5-14.8); LYMPHOCYTES # (AUTO) 0.3 /CMM (0.8-4.8); LYMPHOCYTES % (AUTO) 2.7 % (20.0-44.0); MEAN CORPUSCULAR HGB CONC 33 g/dl (31.0-36.0); MEAN CORPUSCULAR VOLUME 98 fL (82-100); MONOCYTES # (AUTO) 0.2 /CMM (0.1-1.30); MONOCYTES % (AUTO) 1.8 % (2.0-12.0); NEUTROPHILS # (AUTO) 10.3 /CMM (1.8-8.9); NEUTROPHILS % (AUTO) 95.3 % (43.0-81.0); PLATELET COUNT (AUTO) 144 /CMM (150-450); RED BLOOD CELL COUNT(AUTO) 3.28 MIL/uL (4.0-5.2); WHITE BLOOD COUNT (AUTO) 10.8 K/uL (4.3-11.0)
[2019-07-10 04:49] LABS: ALBUMIN 2.4 g/dL (3.4-5.0); BILIRUBIN,TOTAL 1.2 mg/dL (0.2-1.0); CALCIUM, SERUM 7.8 mg/dL (8.5-10.1); MAGNESIUM 1.7 mg/dL (1.8-2.4); PHOSPHORUS 2.9 mg/dL (2.5-4.9); TOTAL PROTEIN, SERUM 6.1 g/dL (6.4-8.2)
--- NOTE | 2019-07-10 06:36 | NUR ---
PATIENT REMAINS IN NO ACUTE DISTRESS IN BED. PATIENT DID NOT HAVE ANY SIGNIFICANT CHANGE IN CONDITION DURING SHIFT. PATIENT TOLERATED NASAL CANNULA AT 3LPM WELL. ALL NEEDS MET, ALL ORDERS CARRIED OUT. WILL ENDORSE CARE TO AM RN FOR CONTINUITY OF CARE.
--- NOTE | 2019-07-10 07:30 | NUR ---
ICU/RN AM SHIFT INITIAL NOTES RECEIVED PT AWAKE IN BED, PT ALERT BUT CONFUSED, NO RESPIRATORY DISTRESS NOTED, SHE DENIES ANY SYMPTOMS. RESPIRATORY PLACED HER ON 1L O2 VIA N/C SATURATING @ 90%, RESPIRATIONS EVEN & UNLABORED, LUNG SOUNDS DIMINISHED. RIGHT UPPER ARM MID-LINE ON TKO, PATENT WITH NO S/S OF INFECTION. MUKHERJEE CATHETER INTACT WITH YELLOW URINE OUTPUT. BILATERAL SOFT WRIST RESTRAINS IN PLACED, REMOVED TO CHECK FOR CIRCULATION AND COMFORT THEN PLACED BACK. PT ON NPO STATUS AT THIS TIME. SCHEDULED AM MEDS TO BE GIVEN. CL WITHIN REACHED AND SAFETY MAINTAINED. ON GOING MONITORING. Addendum: 07/10/19 at 1114 by TITI AZAR RN ADDENDUM: ON TELE MONITORING, A-FIB, HR 51. ASYMPTOMATIC.
[2019-07-10] MEDS ORDERED: BUMETANIDE INJ 8 MG in IV NS 0.9% 48 ML IV ONE (08:00)
[2019-07-10] MEDS: methylPREDNISolone SOD SUCC 40 MG/ML VIAL IV SCH ×2 (08:42→16:30)
[2019-07-10] MEDS: POTASSIUM CHLORIDE 20 MEQ TAB.PRT.SR PO SCH ×4 (08:42→11:43)
[2019-07-10] MEDS: PANTOPRAZOLE 40 MG TABLET.DR PO SCH (08:42)
[2019-07-10] MEDS: CLOTRIMAZOLE 1% 15 GM TUBE TP SCH ×2 (08:44→16:31)
[2019-07-10] MEDS: VANCOMYCIN HCL 0.75 GM in IV D5W 250 ML IV SCH (08:51)
[2019-07-10] MEDS: Magnesium 1GM/D5W 100ML PREMIX 100 ML IV SCH ×2 (10:00→11:20)
[2019-07-10] MEDS: SPIRONOLACTONE 25 MG TABLET PO SCH (10:33)
--- NOTE | 2019-07-10 11:34 | NUR ---
ICU/RN CT ORDERS NOTIFIED DR. SILVA THAT I OBTAINED ORDERS FOR CT OF CHEST AND HEAD WITHOUT CONTRAST FROM OTHER DOCTORS BUT CAN'T STAY STILL INSIDE THE CT MACHINE AND IS COMBATIVE. PER MD TO GIVE HALDOL 2MG IVP X 1 FOR THE PROCEDURE. ORDER NOTED AND CARRIED.
[2019-07-10] MEDS ORDERED: HALOPERIDOL LACTATE INJ 5 MG/ML VIAL IM ONE (13:00)
--- NOTE | 2019-07-10 17:15 | NUR ---
RN NOTE: RECEIVED PATIENT FROM ICU. PATIENT CAME PER ACLS PROTOCOL. PATIENT ASLEEP BUT EASILY AROUSABLE TO NAME AND TOUCH. PATIENT SEDATED WITH HALDOL X [address] OF HEAD AND CHEST. PATIENT ON MUKHERJEE DRAINING CLEAR YELLOW URINE. PATIENT ON O2 AT 1 LPM VIA NC SATTING AT 99%. ON TELE MONITOR AFIB AT 51. ON BILATERAL RESTRAINTS TO BE RENEWED TOMORROW AT 9AM. TK AND WHIT MIDLINE BOTH TKO. INTACT, PATENT, AND SALINE FLUSHED. PER ICU NURSE, PATIENT WAS OFF BIPAP AT 1930 YESTERDAY. BED LOCKED AND IN LOWEST POSITION. CALL LIGHT WITHIN REACH. WILL CONT. TO MONITOR.
--- NOTE | 2019-07-10 17:15 | NUR ---
RN NOTE: UNABLE TO TAKE PHOTOS OF WOUNDS AT THIS TIME DUE TO PATIENT WAS SEDATED. WILL ENDORSE TO SPECIFICATION MANAGER NURSE.
--- NOTE | 2019-07-10 17:27 | NUR ---
ICU/RN DOWNGRADE - TOMAS REPORT GIVEN TO NURSE FOOTE. PT LEFT ICU VIA BED IN STABLE CONDITION. ENDORSED TO CONTINUE CARE.
--- NOTE | 2019-07-10 18:37 | NUR ---
RN CLOSING NOTE PATIENT IN BED, STILL SEDATED. ON TELE MONITOR, STILL AFIB. NO SIGNS OF ANY DISTRESS AT THIS TIME. ON 1L NC. IV ZOSYN RUNNING ON RIGHT MIDLINE. BED LOCKED AND IN LOW POSITION. WILL ENDORSE TO NOC SHIFT FOR ARIAN
--- NOTE | 2019-07-10 19:15 | NUR ---
TOMAS RN OPENING NOTES RECEIVED PATIENT SLEEPING IN BED, BUT EASY TO AROUSE. PT ALERT HOWEVER CONFUSED, ON TELE MONITOR AFIB WITH HR 30S-40S, ASYMPTOMATIC, PER REPORT MD AWARE. ON OXYGEN 1L VIA N/C, TOLERATING WELL. NO RESPIRATORY OR CARDIAC DISTRESS NOTED, DENIES ANY PAIN. RIGHT UPPER ARM MID-LINE ON TKO, FLUSHING AND PATENT WITH NO S/S OF INFECTION. WHIT MIDLINE ALSO FLUSHING AND PATENT, SITE C/D/I. MUKHERJEE CATHETER NOTED AND OFF THE FLOOR. BILATERAL SOFT WRIST RESTRAINS NOTED FOR PT SAFETY, CIRCULATION CHECKED, WNL. PT NOTED TO BE NPO STATUS AT THIS TIME. SAFETY MEASURES IN PLACE; CALL LIGHT WITHIN REACH, SIDE RAILS UP X2, BED LOCKED AND IN LOW POSITION. WILL CONT TO MONITOR PT CLOSELY.
[2019-07-11] VITALS: BP 145/52
[2019-07-11] MEDS ORDERED: VANCOMYCIN HCL 0.75 GM in IV D5W 250 ML IV SCH ×2
--- NOTE | 2019-07-11 01:17 | NUR ---
PT PLACED ON BIPAP NOC PER MD ORDERS. NO RESP DISTRESS OR SOB NOTED. ALARMS ARE SET AND AUDIBLE. BIPAP PLUGGED INTO RED OUTLET. ENEDINAU BAG BEDSIDE. WILL CONTINUE TO MONITOR. Addendum: 07/11/19 at 0118 by GUDELIA CHEN RT Amended: Links added.
[2019-07-11] MEDS: VANCOMYCIN HCL 0.75 GM in IV D5W 250 ML IV SCH ×2 (02:12→20:14)
[2019-07-11] MEDS: PIPERACILLIN /TAZOBACTAM 3.375 G in IV D5W 100 ML IV SCH ×3 (02:50→17:45)
[2019-07-11] MEDS: IPRATROPIUM NEB FS 0.5 MG/2.5 ML AMPUL.NEB NEB SCH ×6 (03:45→22:51)
[2019-07-11] MEDS: ALBUTEROL HALF STRENGTH 1.25 MG/3 ML VIAL.NEB NEB SCH ×6 (03:45→22:51)
[2019-07-11 04:00] VITALS: BP 146/52
--- NOTE | 2019-07-11 07:24 | NUR ---
TOMAS RN CLOSING NOTES PATIENT SLEEPING IN BED, BUT EASY TO AROUSE. ON TELE MONITOR AFIB WITH HR 40S, ASYMPTOMATIC. ON OXYGEN 1L VIA N/C, TOLERATING WELL. NO RESPIRATORY OR CARDIAC DISTRESS NOTED, DENIES ANY PAIN. NOC BIPAP TOLERATED WELL. BILATERAL SOFT WRIST RESTRAINS NOTED FOR PT SAFETY, CIRCULATION CHECKED, WNL. PT KEPT NPO STATUS PER MD ORDER. REPOSITIONED Q2H. SAFETY MEASURES IN PLACE; CALL LIGHT WITHIN REACH, SIDE RAILS UP X2, BED LOCKED AND IN LOW POSITION. WILL CONT TO MONITOR PT CLOSELY.
[2019-07-11] MEDS: PANTOPRAZOLE 40 MG TABLET.DR PO SCH ×2 (07:30→08:42)
--- NOTE | 2019-07-11 07:30 | NUR ---
TOMAS RN AM NOTES RECEIVED PATIENT IN BED, ASLEEP, WAKES UP TO NAME AND TOUCH, CONFUSED. AFIB WITH HR 44 ON TELE MONITOR. ASYMPTOMATIC, PER REPORT MD AWARE. ON OXYGEN 1L VIA N/C, TOLERATING WELL. NO RESPIRATORY OR CARDIAC DISTRESS NOTED, DENIES ANY PAIN. RIGHT UPPER ARM MID-LINE ON TKO, AND WITH WHIT MIDLINE, BOTH ACCESS FLUSHES WELL, BOTH SITES CLEAR, CDI DRESSING. MUKHERJEE CATHETER NOTED AND OFF THE FLOOR. BILATERAL SOFT WRIST RESTRAINTS IN PLACE, RELEASED AND CHECKED FOR CIRCULATION, GOOD PULSES, THEN EVERY 2 HOURS. SEE NURSING FLOWSHEET FOR SKIN ISSUES. NPO FOR NOW. SAFETY MEASURES IN PLACE; CALL LIGHT WITHIN REACH, SIDE RAILS UP X2, BED LOCKED AND IN LOW POSITION. WILL CONT TO MONITOR PT CLOSELY.
[2019-07-11 07:32] LABS: HEMATOCRIT 33 % (33-45); HEMOGLOBIN 10.7 g/dL (11.5-14.8); LYMPHOCYTES # (AUTO) 0.4 /CMM (0.8-4.8); LYMPHOCYTES % (AUTO) 2.5 % (20.0-44.0); MEAN CORPUSCULAR HGB CONC 32 g/dl (31.0-36.0); MEAN CORPUSCULAR VOLUME 97 fL (82-100); MONOCYTES # (AUTO) 0.7 /CMM (0.1-1.30); MONOCYTES % (AUTO) 4.3 % (2.0-12.0); NEUTROPHILS % (AUTO) 93.2 % (43.0-81.0); PLATELET COUNT (AUTO) 157 /CMM (150-450); RED BLOOD CELL COUNT(AUTO) 3.46 MIL/uL (4.0-5.2); WHITE BLOOD COUNT (AUTO) 15.1 K/uL (4.3-11.0)
[2019-07-11 07:43] LABS: ALBUMIN 2.4 g/dL (3.4-5.0); BILIRUBIN,TOTAL 1.3 mg/dL (0.2-1.0); CALCIUM, SERUM 7.4 mg/dL (8.5-10.1); CREATININE 0.8 mg/dL (0.6-1.3); MAGNESIUM 1.8 mg/dL (1.8-2.4); PHOSPHORUS 2.2 mg/dL (2.5-4.9); TOTAL PROTEIN, SERUM 6.1 g/dL (6.4-8.2)
[2019-07-11 08:00] VITALS: BP 134/54
[2019-07-11 08:06] LABS: POTASSIUM 2.8 mmol/L (3.5-5.1)
[2019-07-11] MEDS: methylPREDNISolone SOD SUCC 40 MG/ML VIAL IV SCH ×2 (08:42→14:17)
[2019-07-11] MEDS: SPIRONOLACTONE 25 MG TABLET PO SCH (08:42)
[2019-07-11] MEDS: MUPIROCIN OINT 2% 22 GM TUBE SCH ×2 (09:21→20:27)
[2019-07-11] MEDS: CLOTRIMAZOLE 1% 15 GM TUBE TP SCH ×2 (09:22→17:47)
--- NOTE | 2019-07-11 09:30 | NUR ---
TOMAS RN NOTES DUE MEDS GIVEN
--- NOTE | 2019-07-11 09:40 | NUR ---
ANTOINETTE received a call from Oralia Pak from the public guardian's office inquiring if pt. is still hospitalized. She requested for ANTOINETTE to contact her if and when pt. is discharged back to [facility].
[2019-07-11] MEDS: POTASSIUM CL. PREMIX PERIPHER. 50 ML IV SCH ×10 (10:07→19:46)
[2019-07-11] MEDS ORDERED: POTASSIUM CHLORIDE 20 MEQ TAB.PRT.SR PO ONE (11:30)
[2019-07-11] MEDS ORDERED: POTASSIUM CL. PREMIX PERIPHER. 50 ML IV SCH (11:30)
[2019-07-11 12:00] VITALS: BP 132/40
[2019-07-11] MEDS ORDERED: acetaZOLAMIDE SODIUM 500 MG/VIAL VIAL IV ONE (13:30)
--- NOTE | 2019-07-11 14:35 | NUR ---
AT 1433 PER RN NICOLE CONSENT IS NOT SIGNED FOR US GUIDED THORACENTESIS
--- NOTE | 2019-07-11 14:42 | NUR ---
TOMAS RECINOS NOTES DR. ODELL NOTIFIED, PATIENT'S NIECE GINO CALZADA WANTED TO SPEAK TO HIM PRIOR TO THORACENTESIS. HER PHONE NO. [phone] Addendum: 07/11/19 at 1907 by NICOLE ROSARIO RN ADDENDUM: PER DR. ODELL, HE WILL TALK TO THE NIECE TOMORROW
[2019-07-11 16:00] VITALS: BP 130/46
[2019-07-11] MEDS: POTASSIUM PHOSPHATE MM 7.5 MMOL in IV D5W 100 ML IV SCH ×2 (16:31→19:46)
--- NOTE | 2019-07-11 19:07 | NUR ---
TOMAS RN CLOSING NOTES PATIENT IN BED, AWAKE, CONFUSED. AFIB WITH HR 4Os ON TELE MONITOR. ASYMPTOMATIC, MD AWARE. ON OXYGEN 1L VIA N/C, TOLERATING WELL. NO RESPIRATORY OR CARDIAC DISTRESS NOTED, DENIES ANY PAIN. RIGHT UPPER ARM MID-LINE ON TKO, AND WITH WHIT MIDLINE, BOTH ACCESS FLUSHES WELL, BOTH SITES CLEAR, CDI DRESSING. MUKHERJEE CATHETER NOTED AND OFF THE FLOOR. BILATERAL SOFT WRIST RESTRAINTS IN PLACE, RELEASED AND CHECKED FOR CIRCULATION, GOOD PULSES, THEN EVERY 2 HOURS. NPO FOR NOW. SAFETY MEASURES IN PLACE; CALL LIGHT WITHIN REACH, SIDE RAILS UP X2, BED LOCKED AND IN LOW POSITION. ALL NEEDS MET FOR NOW. PM CARE DONE. WILL ENDORSE TO NEXT SHIFT FOR ARIAN. ONGOING BAG #9 KCL IV. ONGOING BAG #2 K PHOS IV. ONGOING ZOSYN IV. PATIENT FOR US GUIDED THORACENTESIS TOMORROW. CONSENTS SIGNED.
--- NOTE | 2019-07-11 19:33 | NUR ---
TD RN NOTES RECEIVED PT ON BED. A/O X 1 CONFUSED. ON NASAL CANNULA 1LPM NO RESPIRATORY DISTRESS NOTED.ON TELE MONITOR AFIB 40. ON MUKHERJEE CATH DRAINING YELLOW URINE. IV ACCESS ON TK MIDLINE AND WHIT MIDLINE WITH POTASSIUM IV RUNNING. ON BILATERAL SOFT WRIST RESTRAINTS, HEAD OF BED ELEVATED. SIDE RAILS UP. CALL LIGHT WITHIN REACH. BED ALARM ON. BE IN LOW AND LOCKED POSITION. WILL MONITOR PT CLOSELY.
[2019-07-11 20:00] VITALS: BP 119/52
--- NOTE | 2019-07-11 22:51 | NUR ---
RT PLACED PT ON BIPAP PER MD ORDER. KRISTY RECINOS AWARE AND AT BEDSIDE. NO SOB NOTED AT THIS TIME. Addendum: 07/11/19 at 2327 by YADY MCNULTY RT Amended: Links added.
[2019-07-12] VITALS: BP 132/40
[2019-07-12] MEDS: PIPERACILLIN /TAZOBACTAM 3.375 G in IV D5W 100 ML IV SCH ×3 (01:01→17:37)
[2019-07-12] MEDS: IPRATROPIUM NEB FS 0.5 MG/2.5 ML AMPUL.NEB NEB SCH ×5 (02:59→20:15)
[2019-07-12] MEDS: ALBUTEROL HALF STRENGTH 1.25 MG/3 ML VIAL.NEB NEB SCH ×5 (02:59→20:15)
[2019-07-12 04:00] VITALS: BP 138/56
[2019-07-12 06:46] LABS: CALCIUM, SERUM 7.6 mg/dL (8.5-10.1); CREATININE 0.9 mg/dL (0.6-1.3); POTASSIUM 4.1 mmol/L (3.5-5.1)
--- NOTE | 2019-07-12 07:33 | NUR ---
TD RN NOTES NO RESPIRATORY DISTRESS NOTED DURING THE SHIFT. PT STILL AGITATED AND CONFUSED. ENDORSED TO THE AM NURSE FOR CONTINUITY OF CARE.
[2019-07-12 08:00] VITALS: BP 155/73
[2019-07-12] MEDS: methylPREDNISolone SOD SUCC 40 MG/ML VIAL IV SCH (09:52)
[2019-07-12] MEDS: PANTOPRAZOLE 40 MG TABLET.DR PO SCH (09:57)
[2019-07-12] MEDS: SPIRONOLACTONE 25 MG TABLET PO SCH (09:57)
[2019-07-12 12:00] VITALS: BP 133/68
--- NOTE | 2019-07-12 13:30 | NUR ---
RN NOTE PT HAD US THORACENTESIS DONE AT BEDSIDE, TOLERATED WELL. NO S/S OF DISTRESS AT THIS TIME.
[2019-07-12] MEDS: VANCOMYCIN HCL 0.75 GM in IV D5W 250 ML IV SCH (14:26)
[2019-07-12] MEDS ORDERED: SILDENAFIL CITRATE 25 MG TABLET PO SCH (15:00)
[2019-07-12] MEDS: MUPIROCIN OINT 2% 22 GM TUBE SCH ×2 (15:40→21:43)
[2019-07-12] MEDS: CLOTRIMAZOLE 1% 15 GM TUBE TP SCH ×2 (15:41→17:24)
[2019-07-12 16:00] VITALS: BP 130/63
--- NOTE | 2019-07-12 16:41 | NUR ---
RN NOTE PAGED DR MILIAN'S OFFICE , TO IVELISSE, TO RELAY MESSAGE TO ISAAC AVILEZ NP REGARDING LACTIC ACID 4.2. NO RESPONSE YET.
--- NOTE | 2019-07-12 16:44 | NUR ---
RNNOTE SPOKE WITH DR YOUNG AND REPORTED LACTIC ACID 4.2, HE ORDERED ABG AND BOLUS NS AT 250 ML ONCE, AND TO RECHECK REFLEX LACTIC ACID IN 4H. WILL ORDER AND FOLLOW THROUGH. VS STABLE.
[2019-07-12] MEDS ORDERED: IV NS 0.9% 250 ML IV ONE (17:00)
[2019-07-12] MEDS: SILDENAFIL CITRATE 20 MG TABLET PO SCH (17:24)
[2019-07-12 17:30] LABS: ABG BASE EXCESS 7.9 mmol/L; ABG PCO2 45.3 mmHg (35.0-45.0); ABG PH 7.473 (7.350-7.450); AaDO2 42.5 mmHg; COHb 0.9 % (0.5-1.5); MetHb 0.6 % (0.0-1.5); O2Hb 86.7 % (94.0-97.0); SITE, ABG Right Radial; VENT MODE, BG Room Air
[2019-07-12 18:29] LABS: BILIRUBIN,DIRECT 0.4 mg/dL (0.0-0.2)
[2019-07-12 20:00] VITALS: BP 133/50
[2019-07-12 21:29] LABS: APPEARANCE,URINE Clear (CLEAR); BILIRUBIN,URINE Negative (NEGATIVE); BLOOD, URINE Large Ery/uL (NEGATIVE); COLOR,URINE Yellow (YELLOW); KETONES,URINE Negative (NEGATIVE); LEUKOCYTE ESTERASE ,URINE Trace (NEGATIVE); NITRITE, URINE Negative (NEGATIVE); PH,URINE 8.5 (5.0-8.0); PROTEIN,URINE 100 mg/dl (NEGATIVE); UGLUCOSE Negative (NEGATIVE)
[2019-07-12 21:43] LABS: BACTERIA,URINE Few /HPF (None Seen); SQUAMOUS EPITHELIAL CELL,UR Few /HPF (None Seen)
[2019-07-12 21:44] LABS: YEAST,URINE Moderate /HPF (None Seen)
[2019-07-13] VITALS: BP 123/40
[2019-07-13] MEDS: ALBUTEROL HALF STRENGTH 1.25 MG/3 ML VIAL.NEB NEB SCH ×7 (00:06→22:45)
[2019-07-13] MEDS: IPRATROPIUM NEB FS 0.5 MG/2.5 ML AMPUL.NEB NEB SCH ×7 (00:06→22:45)
[2019-07-13] MEDS: PIPERACILLIN /TAZOBACTAM 3.375 G in IV D5W 100 ML IV SCH ×3 (01:27→17:57)
[2019-07-13 04:00] VITALS: BP 122/50
--- NOTE | 2019-07-13 07:05 | NUR ---
EQUALIZER OPERATOR OPENING RECEIVED PATIENT A/OX1. AWAKE. TRYING TO GET OUT OF BED. NO RESPIRATORY DISTRESS, ON 2LPM O2 VIA NC, TOLERATING WELL, PULSE OX AT BEDSIDE. ALARM AUDIBLE. TELE MONITOR ATTACHED, A FIB HR 46. MUKHERJEE CATHETER DRAINING TO GRAVITY. BILATERAL WRIST RESTRAINTS, SEE DOCUMENTATION. NO S/S IMPAIRED CIRCULATION. L UA + R UA MIDLINE C/D/I , PATENT. NO FLUIDS RUNNING PER ORDER. BED ALARM ON. PATIENT UNABLE TO MAKE NEEDS KNOWN, WILL CONT TO MONITOR
[2019-07-13 08:00] VITALS: BP 133/53
[2019-07-13] MEDS: VANCOMYCIN HCL 0.75 GM in IV D5W 250 ML IV SCH (09:55)
[2019-07-13] MEDS: SILDENAFIL CITRATE 20 MG TABLET PO SCH ×2 (09:56→18:00)
[2019-07-13] MEDS: PANTOPRAZOLE 40 MG TABLET.DR PO SCH (09:56)
[2019-07-13] MEDS: SPIRONOLACTONE 25 MG TABLET PO SCH (09:56)
[2019-07-13] MEDS: methylPREDNISolone SOD SUCC 40 MG/ML VIAL IV SCH (09:56)
[2019-07-13] MEDS: MUPIROCIN OINT 2% 22 GM TUBE SCH (09:57)
[2019-07-13] MEDS: CLOTRIMAZOLE 1% 15 GM TUBE TP SCH ×2 (09:57→17:57)
[2019-07-13 12:00] VITALS: BP 111/46
[2019-07-13 14:08] LABS: CALCIUM, SERUM 7.6 mg/dL (8.5-10.1); CREATININE 0.7 mg/dL (0.6-1.3); POTASSIUM 3.1 mmol/L (3.5-5.1)
[2019-07-13 16:00] VITALS: BP 138/37
[2019-07-13] MEDS ORDERED: LACTOBACILLUS RHAMNOSUS GG 1 EACH CAP.SPRINK PO SCH (17:00)
[2019-07-13] MEDS ORDERED: VANC750F2 IV (17:55)
[2019-07-13] MEDS ORDERED: SPIR25TA6 PO (17:55)
[2019-07-13] MEDS ORDERED: PRED20TA PO (17:55)
[2019-07-13] MEDS ORDERED: SILD20TA PO (17:55)
[2019-07-13] MEDS ORDERED: PIPE3.379 IV (17:55)
--- NOTE | 2019-07-13 18:00 | NUR ---
RN CLOSING NO SIGNIFICANT CHANGES THROUGHOUT SHIFT. D/C ORDER RECEIVED, WILL ENDORSE TO NOC RN
[2019-07-13 20:00] VITALS: BP 123/40
--- NOTE | 2019-07-13 23:47 | NUR ---
RN NOTES PATIENT IN BED WITH NO APPARENT DISTRESS. NO PHYSICAL MANIFESTATION OF PAIN OR DISCOMFORT. ALERT BUT VERY CONFUSED. BREATHING EVEN AND UNLABORED. VITAL SIGNS WNL. KEPT CLEAN AND DRY. PICKED UP BY [employer] VIA AMBULANCE AT 2315 ON A GURNEY IN STABLE CONDITION. GAVE ENDORSEMENT TO MARBIN CROWLEY.
== END 2019-07-13 23:20 | DRG 871 ==
LOC: ER 18:22 → TELE 20:41 → ICU 07-09 08:44 → TELE-TD 07-10 17:02 → TELE1 07-12 10:17
PROVIDERS: ATTEND Nurse Practitioner Acute Care
PROC: 5A09357 Assistance with Respiratory Ventilation, Less than 24 Consecutive Hours, Continuous Positive Airway Pressure (ICD-10-PCS; principal; 2019-07-09)
PROC: 05H633Z Insertion of Infusion Device into Left Subclavian Vein, Percutaneous Approach (ICD-10-PCS; 2019-07-09)
PROC: B547ZZA Ultrasonography of Left Subclavian Vein, Guidance (ICD-10-PCS; 2019-07-09)
PROC: 5A09357 Assistance with Respiratory Ventilation, Less than 24 Consecutive Hours, Continuous Positive Airway Pressure (ICD-10-PCS; 2019-07-11)
PROC: 0W993ZZ Drainage of Right Pleural Cavity, Percutaneous Approach (ICD-10-PCS; 2019-07-12)
DX: A41.9 Sepsis, unspecified organism (principal); I50.31 Acute diastolic (congestive) heart failure; J96.21 Acute and chronic respiratory failure with hypoxia; J96.22 Acute and chronic respiratory failure with hypercapnia; G93.41 Metabolic encephalopathy; N17.0 Acute kidney failure with tubular necrosis; J15.6 Pneumonia due to other Gram-negative bacteria; E87.0 Hyperosmolality and hypernatremia; E44.0 Moderate protein-calorie malnutrition; N39.0 Urinary tract infection, site not specified; D68.59 Other primary thrombophilia; J90 Pleural effusion, not elsewhere classified; D63.8 Anemia in other chronic diseases classified elsewhere; E03.9 Hypothyroidism, unspecified; E83.39 Other disorders of phosphorus metabolism; E11.9 Type 2 diabetes mellitus without complications; D69.6 Thrombocytopenia, unspecified; I11.0 Hypertensive heart disease with heart failure; Z87.891 Personal history of nicotine dependence; Z87.440 Personal history of urinary (tract) infections; Z87.01 Personal history of pneumonia (recurrent); E87.6 Hypokalemia; F03.90 Unspecified dementia, unspecified severity, without behavioral disturbance, psychotic disturbance, mood disturbance, and anxiety; Z68.23 Body mass index [BMI] 23.0-23.9, adult; F09 Unspecified mental disorder due to known physiological condition; R62.7 Adult failure to thrive; L30.4 Erythema intertrigo; L98.8 Other specified disorders of the skin and subcutaneous tissue; Z22.322 Carrier or suspected carrier of Methicillin resistant Staphylococcus aureus; B96.1 Klebsiella pneumoniae [K. pneumoniae] as the cause of diseases classified elsewhere; I48.2 Chronic atrial fibrillation; Z79.01 Long term (current) use of anticoagulants; I27.20 Pulmonary hypertension, unspecified; M17.12 Unilateral primary osteoarthritis, left knee
CPT/HCPCS: 36415; 36569; 36600; 70450-TC; 71045-TC; 71250-TC; 76942-TC; 80048-TC; 80053-TC; 80061-TC; 80076-TC; 80202-TC; 81000-TC; 82248-TC; 82803-TC; 83605-TC; 83735-TC; 83880; 84100-TC; 84155-TC; 84443-TC; 84484-TC; 85025-TC; 85610-TC; 85730-TC; 87040-TC; 87070-TC; 87075-TC; 87081-TC; 87086-TC; 87102-TC; 88112-TC; 88189; 88312-TC; 89051-TC; 92526; 92611-TC; 94760-TC; 94799-TC; A4216; A6403; G0378; J1120; J1630; J2543; J2920; J3370; J3475; J3480; J3490; J7050; J7060

== ENCOUNTER 2019-07-14 12:48 | Emergency (ER) | payer MEDICARE ==
[~2019-07-14] VITALS: Ht 165.1 cm; Wt 66.2 kg
[~2019-07-14 12:48] MED LIST changes: +BISA10SU61 RC; -DOXY100T2 PO; +MAGN400O6 PO; +NA P133E RC; +PIPE3.379 IV; -POTASSIUM CHLORIDE; +PRED20TA PO; +PROT946L PO; +SILD20TA PO; +SODIUM CHLORIDE IV; +SPIR25TA6 PO; +VANC750F2 IV
--- NOTE | 2019-07-14 14:18 | NUR ---
PATIENT EYES OPEN AWAKE NO FAMILY @ BEDSIDE CONFUSED CLOSE MONITOR ,PALCE ON GOWN ,CALL LIGHT WITH IN REACH SIDE RAIL UP FOR SAFETY
--- NOTE | 2019-07-14 14:39 | NUR ---
PATIENT ALERT TO NAME ONLY FOR PICC PLACEMENT NO FAMILY @ BEDSIDE MD SIGNED CONSENT FOR PICC WITNESS BY ME
--- NOTE | 2019-07-14 14:41 | NUR ---
VITALS SIGNS TAKEN AND RECORDED HR 45-50 WHEN PATIENT ASLEEP MD AWARE
--- NOTE | 2019-07-14 15:40 | NUR ---
PICC LINE RN @ BEDSIDE
--- NOTE | 2019-07-14 16:40 | NUR ---
PICC LINE DONE TK NOTED SECURED OK TO USE PER PICC RN RELY TO
--- NOTE | 2019-07-14 17:17 | NUR ---
OK TO USE PICC PER DR. ROGERS .I CALLED REPORT TO FACILITY SPOKE TO SIMEON TREJO
--- NOTE | 2019-07-14 18:53 | NUR ---
AMBULANCE UNIT 44 TO TRANSFER PATIENT TO FACILITY
[2019-07-14 18:58] VITALS: BP 125/56
--- NOTE | 2019-07-14 18:59 | NUR ---
SKILL FACILITY MADE AWARE PATIENT DC ,PICC OK TO USE CALLED REPORT TO [facility]ILL FACILITY SPOKE TO RONN RECINOS MADE AWARE
== END 2019-07-14 18:58 | disposition home or self-care (01) ==
LOC: ER 12:51
DX: T82.524A Displacement of infusion catheter, initial encounter (principal); J18.9 Pneumonia, unspecified organism; I10 Essential (primary) hypertension; I48.91 Unspecified atrial fibrillation; M19.90 Unspecified osteoarthritis, unspecified site; Z98.890 Other specified postprocedural states; Z60.2 Problems related to living alone; Z79.899 Other long term (current) drug therapy
CPT/HCPCS: 36569; 99285; C1751